=== PATIENT | female | born 1940 | race Caucasian/White ===

== ENCOUNTER 2017-11-10 14:41 | Inpatient (IN) | payer OTHER, BC ==
[2017-11-10] MEDS ORDERED: SODIUM CHLORIDE 1,000 ML IV STA (14:57)
[2017-11-10] MEDS ORDERED: ACETAMINOPHEN 325 MG TABLET (FP) PO ONE (15:00)
--- NOTE | 2017-11-10 15:00 | PDOC ---
Rapid Medical Evaluation Time Seen by Provider: 11/10/17 14:55 Medical Evaluation: Allergies Allergy/AdvReac Type Severity Reaction Status Date / Time No Known Allergies Allergy Verified 11/10/17 14:55 I have performed a brief in-person evaluation of this patient. The patient presents with a chief complaint of: fever today of 103. Has had cold symptoms for the past few days - cough, runny nose, sore throat, body aches. Patient had a Whipple procedure in 2014 for pancreatic cancer. Patient was recently diagnosed with relapse of pancreatic cancer. Currently not on any chemo. PCP is Dr. Mendoza Oncologist is at [facility] Pertinent physical exam findings: patient appears tired I have ordered the following: septic work up, PO tylenol The patient will proceed to the ED for further evaluation. Discharge Disposition - Diagnosis Fever, Symptoms of upper respiratory infection (URI) - Referrals - Patient Instructions - Post Discharge Activity
--- NOTE | 2017-11-10 16:15 | PDOC ---
History of Present Illness - General History Source: Patient, Family Exam Limitations: No Limitations - History of Present Illness Initial Comments: 11/10/17 16:44 The patient is a 77 year old female, with a significant past medical history of CAD, ASHD, NSTEMI, pancreatic cancer(s/p Whipple procedure), C. diff, anemia, hypertension, and hyperlipidemia, who presents to the emergency department with fever since earlier today. The patient reports she was in her usual state of health yesterday, but had a mild dry cough. Today however, patient endorses a TMax of 103 F. She reports associated sore throat, but no chills, headache, or dizziness. She reports intermittent loose stools for the past couple of months, but denies any current changes in stool, abdominal pain, nausea, or vomiting. She reports a history of UTIs in the past, but denies any current dysuria, hematuria, frequency, or urgency. Patient has recently been seeing her oncologist Dr. Hamilton, for recurrence of Pancreatic cancer, and is scheduled to undergo Chemotherapy later this month. Patient reports contacting her Oncologist Office at [facility], and the nurse advised she come to the ED for further evaluation. Patient denies any recent travel or sick contacts. Allergies: NKDA Past Surgical History: CABG, Whipple, Left knee replacement Social History: Non smoker. No ETOH or recreational drug use. Oncologist: Dr. Hamilton ([phone]) <Yong Bates - Last Filed: 11/10/17 18:12> - General History Source: Patient, Family Exam Limitations: No Limitations <Arron Mirza - Last Filed: 11/10/17 18:17> - General Chief Complaint: SIRS, Suspected/Possible Stated Complaint: FEVER Time Seen by Provider: 11/10/17 14:55 Past History <Yong Bates - Last Filed: 11/10/17 18:12> - Past Medical History Anemia: Yes Asthma: No Cancer: Yes (pancreatic) Cardiac Disorders: Yes (AF, CABG 1999) CVA: No COPD: No CHF: No Dementia: No Diabetes: No GI Disorders: Yes (GERD) Disorders: No HTN: Yes Hypercholesterolemia: Yes Liver Disease: No Seizures: No Thyroid Disease: No Other medical history: bone marrow biopsy - Surgical History Abdominal Surgery: No Appendectomy: No Cardiac Surgery: Yes (CABG) Cholecystectomy: No GI Surgery: Yes (whipple) Lung Surgery: No Neurologic Surgery: No Orthopedic Surgery: Yes (left knee replacement Jan) - Immunization History Immunization Up to Date: Yes - Suicide/Smoking/Psychosocial Hx Smoking Status: No Smoking History: Never smoked Have you smoked in the past 12 months: No Number of Cigarettes Smoked Daily: 0 Information on smoking cessation initiated: No Hx Alcohol Use: No Drug/Substance Use Hx: No Substance Use Type: None Hx Substance Use Treatment: No <Arron Mirza - Last Filed: 11/10/17 18:17> - Past Medical History Allergies/Adverse Reactions: Allergies Allergy/AdvReac Type Severity Reaction Status Date / Time No Known Allergies Allergy Verified 11/10/17 14:55 Home Medications: Ambulatory Orders Atorvastatin Ca [Lipitor] 40 mg PO HS #0 tablet 02/14/13 Multivitamins [Multivit ([facility] Formulary)] 1 tab PO DAILY 09/05/14 Lipase/Protease/Amylase [Zenpep Dr 20,000 Unit Capsule] 1 cap PO TID 10/05/14 Aclidinium [place] [Tudorza -] 1 inh PO BID #1 aero.powd 10/20/14 Aspirin [ASA -] 81 mg PO DAILY tab.chew 10/20/14 Lactobacillus Acidophilus [Bacid -] 1 each PO DAILY tab 10/20/14 Acetaminophen [Tylenol .Regular Strength -] 650 mg PO Q4H PRN #0 tablet Aspirin Coated [Ecotrin -] 81 mg PO DAILY tablet.ec 06/18/16 Atorvastatin Ca [Lipitor] 40 mg PO HS tablet 06/18/16 Enoxaparin [Lovenox -] 40 mg SQ DAILY disp.syrin 06/18/16 Furosemide [Lasix -] 40 mg PO DAILY tablet 06/18/16 Hydrocortisone 2.5% Topical Cr [Anusol-Hc -] 1 applic TP Q4H PRN #0 tube Hydrocortisone Acetate [Anusol Hc Suppository -] 25 mg RC HS supp.rect Lactobacillus Acidophilus [Bacid -] 1 tab PO BID tab 06/18/16 Metoclopramide HCl [Reglan -] 10 mg PO TIDAC tablet 01/07/17 Metoprolol Tartrate [Lopressor -] 25 mg PO BID tablet 06/18/16 Ranitidine [Zantac -] 150 mg PO DAILY tablet 06/18/16 Review of Systems - Review of Systems Able to Perform ROS?: Yes Comments:: 11/10/17 16:44 GENERAL/CONSTITUTIONAL: +Fever. No chills. No weakness. HEAD, EYES, EARS, NOSE AND THROAT: +Sore throat. No change in vision. No ear pain or discharge. CARDIOVASCULAR: No chest pain or shortness of breath. RESPIRATORY: +Dry cough. No wheezing or hemoptysis. GASTROINTESTINAL: +Chronic loose stools. No nausea, vomiting, or constipation. GENITOURINARY: No dysuria, frequency, or change in urination. MUSCULOSKELETAL: No joint or muscle swelling or pain. No neck or back pain. SKIN: No rash NEUROLOGIC: No headache, vertigo, loss of consciousness, or change in strength/ sensation. ENDOCRINE: No increased thirst. No abnormal weight change. HEMATOLOGIC/LYMPHATIC: No anemia, easy bleeding, or history of blood clots. ALLERGIC/IMMUNOLOGIC: No hives or skin allergy. <Yong Bates - Last Filed: 11/10/17 18:12> *Physical Exam - Vital Signs Last Vital Signs Temp Pulse Resp BP Pulse Ox 100.1 F H 99 H 18 90/58 100 11/10/17 14:56 11/10/17 14:56 11/10/17 14:56 11/10/17 14:56 11/10/17 14:56 - Physical Exam Comments: 11/10/17 16:45 GENERAL: Awake, alert, and fully oriented, in no acute distress HEAD: No signs of trauma EYES: PERRLA, EOMI, sclera anicteric, conjunctiva clear ENT: Auricles normal inspection, hearing grossly normal, nares patent, oropharynx clear without exudates. Moist mucosa NECK: Normal ROM, supple, no lymphadenopathy, JVD, or masses LUNGS: Breath sounds equal, clear to auscultation bilaterally. No wheezes, and no crackles HEART: Regular rate and rhythm, normal S1 and S2, no murmurs, rubs or gallops ABDOMEN: Soft, nontender, normoactive bowel sounds. No guarding, no rebound. No masses EXTREMITIES: Normal range of motion, no edema. No clubbing or cyanosis. No cords, erythema, or tenderness NEUROLOGICAL: Cranial nerves II through XII grossly intact. Normal speech, normal gait SKIN: Warm, Dry, normal turgor, no rashes or lesions noted. <Yong Bates - Last Filed: 11/10/17 18:12> - Vital Signs Last Vital Signs Temp Pulse Resp BP Pulse Ox 100.1 F H 99 H 18 90/58 100 11/10/17 14:56 11/10/17 14:56 11/10/17 14:56 11/10/17 14:56 11/10/17 14:56 <Arron Mirza - Last Filed: 11/10/17 18:17> Heart Score/ECG Review #1 ECG reviewed & interpreted by me at: 17:25 11/10/17 17:49 NSR left axis deviation, LBBB, QTC 528 msec, scarbossa negative. <Arron Mirza - Last Filed: 11/10/17 18:17> ED Treatment Course - LABORATORY CBC & Chemistry Diagram: 11/10/17 15:31 11/10/17 15:31 - ADDITIONAL ORDERS Additional order review: Laboratory Results 11/10/17 15:50 VBG pH 7.43 H POC VBG pCO2 41.2 POC VBG pO2 28.5 Mixed VBG HCO3 26.6 H 11/10/17 15:31 RBC 3.62 MCV 91.8 MCHC 32.5 RDW 18.1 H MPV 10.5 D Neutrophils % 75.4 Lymphocytes % 12.1 D Monocytes % 12.1 H Eosinophils % 0.1 D Basophils % 0.3 <Yong Bates - Last Filed: 11/10/17 18:12> - LABORATORY CBC & Chemistry Diagram: 11/10/17 15:31 11/10/17 15:31 <Arron Mirza - Last Filed: 11/10/17 18:17> Medical Decision Making - Medical Decision Making 11/10/17 17:56 First call placed to on-call oncologist at [facility] at 17:00. Awaiting call back. Case discussed with Dr. Maldonado at 17:30. First call placed to Dr. Yanez at 17:50. Awaiting call back. Case discussed with Dr. Yanez's covering doctor at 18:16. First call placed to Dr. Watkins at 17:56. Awaiting call back. First call placed to Dr. Bentley at 17:58. Awaiting call back. Case discussed with Dr. Butler at 18:05. <Yong Bates - Last Filed: 11/10/17 18:12> - Medical Decision Making 11/10/17 16:15 A portion of this note was documented by scribe services under my direction. I have reviewed the details of the note, within reason, and agree with the documentation with the following case summary and management plan written by me. Patient treated in the ED. Nursing notes are reviewed and incorporated into the medical decision-making. Vital signs reviewed. Peripheral IV access obtained by the nurse, laboratory studies are drawn and sent, reviewed and interpreted by myself. Vital Signs Period Temp Pulse Resp BP Sys/[place] Pulse Ox Last 24 Hr 100.1 F 99 18 90/58 100 77-year-old female patient with history of atrial fibrillation, coronary disease , C. difficile, hypertension, hyperlipidemia, pancreatic cancer status post Whipple's procedure, now with recurrence of [place] cancer, undergoing soon later this month with chemotherapy presents with fever for one day. The patient was in her usual state of health yesterday. She did endorse some mild nonproductive cough but today noted a fever 103. Patient reports some mild sore throat. The patient reports intermittent loose stool that is chronic for last several months. She denies any changes in her stooling and denies any abdominal pain at this time. Does have a history of urinary tract infections but denies dysuria. Patient contacted her oncologist office at [facility] and the nurse had advised patient to go to the ER. Sepsis workup initiated. Differential includes pneumonia, urinary tract infection, other occult infections. We'll obtain labs, chest x-ray, influenza swab, urine and reassess. We'll need to touch base with the patient's oncologist once results return. 11/10/17 17:45 CBC, BMP 11/10/17 15:31 11/10/17 15:31 CMP Sodium 138 mmol/L (136-145) 11/10/17 15:31 Potassium 3.6 mmol/L (3.5-5.1) 11/10/17 15:31 Chloride 101 mmol/L (98-107) 11/10/17 15:31 Carbon Dioxide 25 mmol/L (21-32) 11/10/17 15:31 Anion Gap 12 (8-16) 11/10/17 15:31 BUN 18 mg/dL (7-18) 11/10/17 15:31 Creatinine 1.3 mg/dL (0.55-1.02) H 11/10/17 15:31 Creat Clearance w eGFR 39.51 (>60) 11/10/17 15:31 Random Glucose 185 mg/dL (74-106) H 11/10/17 15:31 Lactic Acid 3.3 mmol/L (0.0-2.0) H* 11/10/17 15:31 Calcium 8.7 mg/dL (8.5-10.1) 11/10/17 15:31 Total Bilirubin 0.7 mg/dL (0.2-1.0) 11/10/17 15:31 AST 67 U/L (15-37) H 11/10/17 15:31 ALT 66 U/L (12-78) 11/10/17 15:31 Alkaline Phosphatase 156 U/L (45-117) H 11/10/17 15:31 Troponin I 0.28 ng/ml (0.00-0.05) H 11/10/17 15:31 Total Protein 6.7 g/dl (6.4-8.2) 11/10/17 15:31 Albumin 3.1 g/dl (3.4-5.0) L 11/10/17 15:31 Chest xray reviewed. Cardiomegaly but no infiltrates. Influenza swab pending. Case was discussed with [place] [facility] Fellow Dr. Maldonado (covering). Pt is not under chemotherapy at the moment and had an echo performed approx 1 year ago which showed an EF ~ 20%. Troponin was noted to be 0.28. The patient's history seems atypical for ACS or CT, but will give aspirin. However, will hold off on heparin and will trend troponin. We will hold off on antibiotics given WBC of 3.9. Patient is very nervous about getting reoccurrent c. diff. Given that WBC 3.9 and overall the patient is nontoxic appearing, I feel that this could potentially be a viral strain with cardiac demand. Will allow the cultures to grow and wait. Will call pt's [place] dipper machine operator Dr. Magda Yanez. Will admit patient. 11/10/17 18:[address] Butler. Case discussed with covering dipper machine operator for Dr. Yanez as well. Case discussed with Dr. Hays. He accepts patient to tele admission. Requests ID consultation as well. <Arron Mirza - Last Filed: 11/10/17 18:17> *DC/Admit/Observation/Transfer - Attestations Scribe Attestion: 11/10/17 16:45 Documentation prepared by Yong Bates, acting as biomedical repair technician for Arron Mirza MD. <Yong Bates - Last Filed: 11/10/17 18:12> - Discharge Dispostion Decision to Admit order: Yes <Arron Mirza - Last Filed: 11/10/17 18:17> Diagnosis at time of Disposition: Symptoms of upper respiratory infection (URI), Elevated troponin Fever Qualifiers: Fever type: unspecified Qualified Code(s): R50.9 - Fever, unspecified - Discharge Dispostion Condition at time of disposition: Stable
[2017-11-10 16:29] LABS: BASO % 0.3 % (0-2.0); EOS % 0.1 % (0-4.5); HEMATOCRIT 33.2 % (32.4-45.2); HEMOGLOBIN 10.8 GM/dL (10.7-15.3); LYMPH % 12.1 % (8-40); MCH 29.9 pg (25.7-33.7); MCHC 32.5 g/dl (32.0-36.0); MEAN CELL VOLUME 91.8 fl (80-96); MEAN PLT VOLUME 10.5 fl (7.5-11.1); MONO % 12.1 % (3.8-10.2); NEUT % 75.4 % (42.8-82.8); PLATELET COUNT 120 K/MM3 (134-434); RBC 3.62 M/mm3 (3.60-5.2); RDW 18.1 % (11.6-15.6); WHITE BLOOD COUNT 3.9 K/mm3 (4.0-10.0)
[2017-11-10 16:33] LABS: VENOUS PC02 41.2 mmHg (38-52); VENOUS PH 7.43 (7.32-7.42)
[2017-11-10 16:34] LABS: VENOUS PO2 28.5 mmHg (28-48)
[2017-11-10 16:45] LABS: INR 1.57 (0.82-1.09); PROTHROMBIN TIME (PATIENT) 17.7 SEC (9.7-13.0)
[2017-11-10 16:50] LABS: ALBUMIN 3.1 g/dl (3.4-5.0); ANION GAP 12 (8-16); BLOOD UREA NITROGEN 18 mg/dL (7-18); CALCIUM 8.7 mg/dL (8.5-10.1); CHLORIDE 101 mmol/L (98-107); CO2 25 mmol/L (21-32); CREATININE 1.3 mg/dL (0.55-1.02); GLUCOSE,RANDOM 185 mg/dL (74-106); POTASSIUM 3.6 mmol/L (3.5-5.1); SGOT/AST 67 U/L (15-37); SGPT/ALT 66 U/L (12-78); SODIUM 138 mmol/L (136-145)
[2017-11-10 16:51] LABS: ALK PHOS 156 U/L (45-117); BILIRUBIN,TOTAL 0.7 mg/dL (0.2-1.0); TOT PROT 6.7 g/dl (6.4-8.2)
[2017-11-10] MEDS ORDERED: ASPIRIN 81 MG CHEWABLE TABLETS PO ONE (17:34)
[2017-11-10] MEDS ORDERED: ASPIRIN COATED 81 MG TABLET.EC ONE (17:38)
--- NOTE | 2017-11-10 18:22 | HP ---
Admitting History and Physical - Primary Care Physician PCP: Jaycob Mendoza - Admission Chief Complaint: Fever with Cough History of Present Illness: 77 yrs old pleaseant F multiple medical Co-morbidities inculding recurrent [facility]reatic [facility] HTN, CAd s/p CABG, Dyslipedemia, Afib on Coumadin, yesterday present with 3 days H/O URTI symptoms , yesterday morning symptoms worsened so came to Ed For evaluation, patient spiked 103 at home also c/o scrathy sensation in throat, nasal congestion and cough with mucoid sputum, Ed Consulted her Metal Engineering Process Worker at [facility] and Oncologist at [place] agrees with plan of care, no c/o nausea, vomiting, diarrhea, chest pain, dysuria, Flu swab -ve, lab shows elevated Lactic acid and troponin I ad mitted for further management. - Past Medical History Cardiovascular: Yes: CAD, CHF, HTN, Hyperlipdemia, Mitral Insufficiency, Pulmonary Hypertension, Other (Cardiomyopathy) Pulmonary: Yes: Bronchitis (h/o possible chemotherpay reaction) Gastrointestinal: Yes: Constipation, Other (Whipple procedure for pancreatic cancer Recent C Diff diarrhea on metronidazole) Heme/Onc: Yes: Other (Previous chemotherapyinduced cytopenias) Musculoskeletal: Yes: Osteoarthritis - Past Surgical History Past Surgical History: Yes: CABG, Joint Replacement (TKR) - Smoking History Smoking history: Never smoked Have you smoked in the past 12 months: No Aproximately how many cigarettes per day: 0 - Alcohol/Substance Use Hx Alcohol Use: No History of Substance Use: reports: None - Social History ADL: Independent History of Recent Travel: No Home Medications - Allergies Allergies/Adverse Reactions: Allergies Allergy/AdvReac Type Severity Reaction Status Date / Time No Known Allergies Allergy Verified 11/10/17 14:55 - Home Medications Home Medications: Ambulatory Orders Acetaminophen [Tylenol -] 500 mg PO DAILY 11/10/17 Atorvastatin Ca [Lipitor] 10 mg PO HS 11/10/17 Cholecalciferol (Vitamin D3) [Vitamin D3] 2,000 unit PO DAILY 11/10/17 Enalapril Maleate 2.5 mg PO DAILY 11/10/17 Famotidine [Pepcid] 20 mg PO PRN PRN 11/10/17 Lipase/Protease/Amylase [Creon Dr 24,000 Units Capsule] 1 each PO DAILY Metoprolol Succinate [Toprol Xl] 100 mg PO DAILY 11/10/17 Multivitamin [One Daily] 1 each PO DAILY 11/10/17 Torsemide 50 mg PO DAILY 11/10/17 Warfarin Na [Coumadin Protocol] 1.5 each PO DAILY 11/10/17 Warfarin Na [Coumadin] 1 mg PO DAILY 11/10/17 traMADol HCL [Ultram -] 50 mg PO DAILY 11/10/17 Family Disease History - Family Disease History Family History: Unremarkable Review of Systems - Review of Systems Constitutional: reports: Chills, Diaphoresis, Fever, Lethargy, Loss of Appetite HENT: reports: Throat Pain. denies: Difficult Swallowing, Ear Discharge, Ear Pain, Epistaxis Neck: denies: Decreased ROM, Lumps, Pain on Movement, Stiffness Cardiovascular: reports: Shortness of Breath. denies: Chest Pain, Edema, Palpitations Respiratory: reports: Cough. denies: Hemoptysis, Orthopnea Gastrointestinal: denies: Abdominal Pain, Bloating, Constipation, Diarrhea, Melena, Vomiting Genitourinary: denies: Burning, Discharge, Dysuria Musculoskeletal: reports: Back Pain. denies: Crepitus, Decreased ROM Neurological: denies: Change in LOC, Change in Speech, Confusion Endocrine: denies: Excessive Sweating, Flushing, Increased Hunger Hematology/Lymphatic: denies: Easily Bruised, Excessive Bleeding Physical Examination Vital Signs: Vital Signs Temperature 100.1 F H 11/10/17 14:56 Pulse Rate 99 H 11/10/17 14:56 Respiratory Rate 18 11/10/17 14:56 Blood Pressure 90/58 11/10/17 14:56 O2 Sat by Pulse Oximetry (%) 100 11/10/17 14:56 Elderly F not in distress HEENT; Mm moist nasal congestion NECK: No JVd No Bruit CHEST: CTA B/L CVS: S1S2 R no m/g/r ABD: No distention, non tender Bs + EXT: No edema feet no calf tenderness, Pulses + TEAM FOREMAN: AOX3 non focal Labs: CBC, BMP 11/10/17 15:31 11/10/17 15:31 Imaging - Results Chest X-ray: Report Reviewed (No infiltrates) EKG: Report Reviewed (No Intervakl changes) Problem List - Problems (1) Fever Assessment/Plan: Most likely viral; sickness, close observation, F/U Pending culture, no source so far F/U Serial CBC, patient doesn't want abx as she has H/O C Diff, F/U ID Recommondation, Flu swanb is -ve. Code(s): R50.9 - FEVER, UNSPECIFIED Qualifiers: Fever type: unspecified Qualified Code(s): R50.9 - Fever, unspecified (2) Symptoms of upper respiratory infection (URI) Assessment/Plan: Cont Symptomatic treatment fever curve, cough syrup Code(s): R09.89 - OTH SYMPTOMS AND SIGNS INVOLVING THE CIRC AND RESP SYSTEMS (3) Elevated troponin Assessment/Plan: Asymptomatic no acute St t chnages can be Demand ischemmia, Cardiology consult, serial CE and ECHO cont Home meds. Code(s): R79.89 - OTHER SPECIFIED ABNORMAL FINDINGS OF BLOOD CHEMISTRY (4) LOREE (acute kidney injury) Assessment/Plan: Mild Elvation of BUN/Creat F/U after IV Hydration. Code(s): N17.9 - ACUTE KIDNEY FAILURE, UNSPECIFIED (5) Dehydration Code(s): E86.0 - DEHYDRATION (6) ASHD (arteriosclerotic heart disease) Assessment/Plan: Cont Home meds Code(s): I25.10 - ATHSCL HEART DISEASE OF [place] CORONARY ARTERY W/O ANG PCTRS (7) Pancreatic cancer Assessment/Plan: Recurrent F/U at [place] no active issue Code(s): C25.9 - MALIGNANT NEOPLASM OF PANCREAS, UNSPECIFIED (8) GERD (gastroesophageal reflux disease) Assessment/Plan: Cont Famotidine Code(s): K21.9 - GASTRO-ESOPHAGEAL REFLUX DISEASE WITHOUT ESOPHAGITIS (9) HTN (hypertension) Assessment/Plan: BP lower side IV Hydration Hold BP meds re evaluate in am. Code(s): I10 - ESSENTIAL (PRIMARY) HYPERTENSION (10) Afib Assessment/Plan: On AC Coumadin level sub therapeutic. Code(s): I48.91 - UNSPECIFIED ATRIAL FIBRILLATION Qualifiers: Atrial fibrillation type: paroxysmal Qualified Code(s): I48.0 - Paroxysmal atrial fibrillation (11) CHF (congestive heart failure), NYHA class II Assessment/Plan: Unknown EF Hold Toresamide for Dehydration and Hypotention F.?U ECHO, re introduce Diuretics as per volume status. Code(s): I50.9 - HEART FAILURE, UNSPECIFIED (12) Thrombocytopenia Assessment/Plan: Patient has H/O Thrombocytopenia, base line platelete count around 80 K Code(s): D69.6 - THROMBOCYTOPENIA, UNSPECIFIED
[2017-11-10] MEDS ORDERED: ATORVASTATIN CA 40 MG TABLET (FP) PO SCH (22:00)
[2017-11-10] MEDS ORDERED: PHENYLEPHRINE 0.25%/STARCH 1 EACH SUPP.RECT RC ONE (23:25)
[2017-11-10] MEDS ORDERED: METOPROLOL TARTRATE 25 MG TABLET (FP) ONE (23:25)
[2017-11-10] MEDS ORDERED: ATORVASTATIN CA 40 MG TABLET (FP) ONE (23:26)
[2017-11-10 23:34] LABS: URINE APPEARANCE CLOUDY; URINE BILIRUBIN NEGATIVE (<2.0 mg/dL); URINE BLOOD 2+ (NEGATIVE); URINE COLOR YELLOW; URINE GLUCOSE (UA) NEGATIVE (NEGATIVE); URINE KETONE NEGATIVE (NEGATIVE); URINE NITRITE NEGATIVE (NEGATIVE); URINE PROTEIN NEGATIVE (NEGATIVE); URINE UROBILINOGEN NEGATIVE mg/dL (0.2-1.0)
[2017-11-10 23:41] LABS: URINE LEUK ESTERASE 3+ (NEGATIVE)
[2017-11-10 23:44] LABS: EPI CELLS RARE /HPF (FEW); URINE BACTERIA RARE /hpf (NONE SEEN); URINE HYALINE CAST 12 /lpf; URINE MUCUS RARE
[2017-11-10] MEDS: LACTOBACILLUS ACIDOPHILUS 1 TABLET PO SCH (23:47)
[2017-11-10] MEDS: HYDROCORTISONE ACETATE 25 MG/SUPP.RECT RC SCH (23:47)
[2017-11-11] MEDS ORDERED: PHENYLEPHRINE 0.25%/STARCH 1 EACH SUPP.RECT RC ONE (01:16)
[2017-11-11] MEDS: METOPROLOL TARTRATE 25 MG TABLET (FP) PO SCH ×3 (01:25→22:25)
[2017-11-11] MEDS ORDERED: WARFARIN NA 5 MG TABLET (UD) PO ONE (01:26)
[2017-11-11] MEDS ORDERED: SODIUM CHLORIDE 0.9% 500 ML INFUS.BAG IV ONE (01:27)
[2017-11-11] MEDS: SODIUM CHLORIDE 0.9% 500 ML INFUS.BAG IV SCH (01:30)
[2017-11-11] MEDS ORDERED: WARFARIN NA 1 MG TABLET (FP) ONE (01:39)
[2017-11-11] MEDS: METOCLOPRAMIDE HCL 10 MG TABLET (FP) PO SCH ×3 (06:58→17:32)
[2017-11-11 08:03] VITALS: BMI 23.4
[2017-11-11 08:47] LABS: BASO % 0.4 % (0-2.0); EOS % 1.3 % (0-4.5); HEMATOCRIT 31.4 % (32.4-45.2); HEMOGLOBIN 10.3 GM/dL (10.7-15.3); LYMPH % 27.8 % (8-40); MCH 30.3 pg (25.7-33.7); MEAN CELL VOLUME 91.8 fl (80-96); MEAN PLT VOLUME 9.7 fl (7.5-11.1); MONO % 11.7 % (3.8-10.2); NEUT % 58.8 % (42.8-82.8); PLATELET COUNT 94 K/MM3 (134-434); RBC 3.41 M/mm3 (3.60-5.2); RDW 18.3 % (11.6-15.6); WHITE BLOOD COUNT 4.1 K/mm3 (4.0-10.0)
[2017-11-11 09:19] LABS: ANION GAP 8 (8-16); BLOOD UREA NITROGEN 17 mg/dL (7-18); CALCIUM 8.5 mg/dL (8.5-10.1); CHLORIDE 104 mmol/L (98-107); CO2 27 mmol/L (21-32); CREATININE 0.9 mg/dL (0.55-1.02); GLUCOSE,RANDOM 102 mg/dL (74-106); POTASSIUM 3.8 mmol/L (3.5-5.1); SGOT/AST 85 U/L (15-37); SGPT/ALT 67 U/L (12-78); SODIUM 139 mmol/L (136-145)
[2017-11-11 09:21] LABS: ALK PHOS 146 U/L (45-117); BILIRUBIN,TOTAL 0.7 mg/dL (0.2-1.0); TOT PROT 6.3 g/dl (6.4-8.2)
[2017-11-11] MEDS: MULTIVITAMINS (DAILY MVI) TABLET (FP) PO SCH (09:23)
--- NOTE | 2017-11-11 09:33 | PN ---
Progress Note, Physician Chief Complaint: T max 100.1 feels improved - Current Medication List Current Medications: Active Medications Acetaminophen (Tylenol -) 650 mg PO Q4H PRN PRN Reason: FEVER Aspirin (Ecotrin -) 81 mg PO DAILY [facility] Atorvastatin Calcium (Lipitor -) 40 mg PO HS [facility] Last Admin: 11/10/17 23:48 Dose: 40 mg Hydrocortisone Acetate (Anusol Hc Suppository -) 25 mg RC HS [facility] Last Admin: 11/10/17 23:47 Dose: 25 mg Lactobacillus Acidophilus (Bacid -) 1 tab PO BID [facility] Last Admin: 11/10/17 23:47 Dose: 1 tab Metoclopramide HCl (Reglan -) 10 mg PO TIDAC [facility] Last Admin: 11/11/17 06:58 Dose: Not Given Metoprolol Tartrate (Lopressor -) 25 mg PO BID [facility] Last Admin: 11/11/17 09:23 Dose: 25 mg Multivitamins/Minerals/Vitamin C (Tab-A-Vit -) 1 tab PO DAILY [facility] Last Admin: 11/11/17 09:23 Dose: 1 tab Non-Formulary Medication (Aclidinium [place] [Tudorza -]) 1 inh PO BID [facility] Non-Formulary Medication (Lipase/Protease/Amylase [Zenpep Dr 20,000 Unit Capsule ]) 1 cap PO TID [facility] Ranitidine HCl (Zantac -) 150 mg PO DAILY [facility] Last Admin: 11/11/17 09:25 Dose: Not Given Sodium Chloride (Normal Saline -) 75 ml IV NOW [facility] Last Admin: 11/11/17 01:30 Dose: 75 ml - Objective Vital Signs: Vital Signs Temperature 98.8 F 11/11/17 04:45 Pulse Rate 77 11/11/17 04:45 Respiratory Rate 17 11/11/17 04:45 Blood Pressure 107/65 11/11/17 04:45 O2 Sat by Pulse Oximetry (%) 97 11/11/17 04:30 Elderly F not in distress HEENT; Mm moist nasal congestion NECK: No JVd No Bruit CHEST: CTA B/L CVS: S1S2 R no m/g/r ABD: No distention, non tender Bs + EXT: No edema feet no calf tenderness, Pulses + [employer]IEUT[employer]NT: AOX3 non focal Labs: CBC, BMP 11/11/17 08:30 11/11/17 08:30 INR, PTT INR 1.57 (0.82-1.09) H 11/10/17 15:31 Problem List - Problems (1) Fever Assessment/Plan: Most likely viral; sickness, close observation, F/U Pending culture, no source so far F/U Serial CBC, patient doesn't want abx as she has H/O C Diff, F/U ID Recommondation, Flu swanb is -ve. Code(s): R50.9 - FEVER, UNSPECIFIED Qualifiers: Fever type: unspecified Qualified Code(s): R50.9 - Fever, unspecified (2) Symptoms of upper respiratory infection (URI) Assessment/Plan: Cont Symptomatic treatment fever curve, cough syrup Code(s): R09.89 - OTH SYMPTOMS AND SIGNS INVOLVING THE CIRC AND RESP SYSTEMS (3) Elevated troponin Assessment/Plan: Asymptomatic no acute St t chnages can be Demand ischemmia, Cardiology consult, serial CE and ECHO cont Home meds. Code(s): R79.89 - OTHER SPECIFIED ABNORMAL FINDINGS OF BLOOD CHEMISTRY (4) LOREE (acute kidney injury) Assessment/Plan: Mild Elvation of BUN/Creat improved after IV Hydration. Code(s): N17.9 - ACUTE KIDNEY FAILURE, UNSPECIFIED (5) Dehydration Assessment/Plan: Resolved Code(s): E86.0 - DEHYDRATION (6) ASHD (arteriosclerotic heart disease) Assessment/Plan: Cont Home meds Code(s): I25.10 - ATHSCL HEART DISEASE OF [place] CORONARY ARTERY W/O ANG PCTRS (7) Pancreatic cancer Assessment/Plan: Recurrent F/U at [place] no active issue Code(s): C25.9 - MALIGNANT NEOPLASM OF PANCREAS, UNSPECIFIED (8) GERD (gastroesophageal reflux disease) Assessment/Plan: Cont Famotidine Code(s): K21.9 - GASTRO-ESOPHAGEAL REFLUX DISEASE WITHOUT ESOPHAGITIS (9) HTN (hypertension) Assessment/Plan: BP lower side IV Hydration Hold BP meds re evaluate in am. Code(s): I10 - ESSENTIAL (PRIMARY) HYPERTENSION (10) Afib Assessment/Plan: On AC Coumadin level sub therapeutic. Code(s): I48.91 - UNSPECIFIED ATRIAL FIBRILLATION Qualifiers: Atrial fibrillation type: paroxysmal Qualified Code(s): I48.0 - Paroxysmal atrial fibrillation (11) Thrombocytopenia Assessment/Plan: Drop in platelete F/U serial platelete count , Hematology consult Code(s): D69.6 - THROMBOCYTOPENIA, UNSPECIFIED (12) CHF (congestive heart failure), NYHA class II Assessment/Plan: Unknown EF Hold Toresamide for Dehydration and Hypotention F.?U ECHO, re introduce Diuretics as per volume status. Code(s): I50.9 - HEART FAILURE, UNSPECIFIED
[2017-11-11] MEDS ORDERED: PATIENT'S OWN MEDICATION (NON-FORMULARY) (Famotidine [Pepcid] 20 MG) PO PRN (09:38)
[2017-11-11] MEDS ORDERED: ENALAPRIL MALEATE 2.5 MG TABLET (FP) PO SCH ×2 (10:00→22:00)
[2017-11-11] MEDS ORDERED: RANITIDINE HCL 150 MG TABLET (FP) PO SCH (10:00)
[2017-11-11 10:19] LABS: INR 1.78 (0.82-1.09); PROTHROMBIN TIME (PATIENT) 20.1 SEC (9.7-13.0)
[2017-11-11] MEDS ORDERED: ONDANSETRON 4 MG/2 ML VIAL IVPUSH PRN (10:20)
--- NOTE | 2017-11-11 10:52 | PN ---
Progress Note (short form) - Note Progress Note: ID Consult dictated Probable viral URI Hx C difficile colitis Recurrent pancreatic ca Observe off antibiotics
--- NOTE | 2017-11-11 11:20 | CONSULT ---
Consult Consult Specialty:: Cardiology Referred by:: Medicine Reason for Consultation:: (+) Troponin - History of Present Illness Chief Complaint: Fever History of Present Illness: 77 yo female Metastatic Pancreatic cancer known CAD s/p 1v CAB in 1999 for isolated LAD disease Severe MR with severe LV dysfunction on echo in 05/2016 Afib on AC (Warfarin) Followed closely by Dr. Jarrell at [facility] for Cards Now admitted after 1 days of fever and cough Found to have elevated lactate, BNP and troponin. Currently denies any CV complaints of chest pain, dyspnea, palpitations or dizziness. - History Source History Provided By: Patient, Family Member Limitations to Obtaining History: No Limitations - Past Medical History Cardio/Vascular: Yes: CAD, CHF, HTN, Hyperlipdemia, Mitral Insufficiency, Pulmonary Hypertension, Other (Cardiomyopathy) Pulmonary: Yes: Bronchitis (h/o possible chemotherpay reaction) Gastrointestinal: Yes: Constipation, Other (Whipple procedure for pancreatic cancer Recent C Diff diarrhea on metronidazole) ...: No Musculoskeletal: Yes: Osteoarthritis - Past Surgical History Past Surgical History: Yes: CABG, Joint Replacement (TKR) - Alcohol/Substance Use Hx Alcohol Use: No History of Substance Use: reports: None - Smoking History Smoking history: Never smoked Have you smoked in the past 12 months: No Aproximately how many cigarettes per day: 0 - Social History Usual Living Arrangement: With Spouse ADL: Independent History of Recent Travel: No Home Medications - Allergies Allergies/Adverse Reactions: Allergies Allergy/AdvReac Type Severity Reaction Status Date / Time No Known Allergies Allergy Verified 11/10/17 14:55 - Home Medications Home Medications: Ambulatory Orders Acetaminophen [Tylenol -] 500 mg PO DAILY 11/10/17 Atorvastatin Ca [Lipitor] 10 mg PO HS 11/10/17 Cholecalciferol (Vitamin D3) [Vitamin D3] 2,000 unit PO DAILY 11/10/17 Enalapril Maleate 2.5 mg PO DAILY 11/10/17 Famotidine [Pepcid] 20 mg PO PRN PRN 11/10/17 Lipase/Protease/Amylase [Dezon Dr 24,000 Units Capsule] 1 each PO DAILY Metoprolol Succinate [Toprol Xl] 100 mg PO DAILY 11/10/17 Multivitamin [One Daily] 1 each PO DAILY 11/10/17 Torsemide 50 mg PO DAILY 11/10/17 Warfarin Na [Coumadin Protocol] 1.5 each PO DAILY 11/10/17 Warfarin Na [Coumadin] 1 mg PO DAILY 11/10/17 traMADol HCL [Ultram -] 50 mg PO DAILY 11/10/17 Family Disease History - Family Disease History Family History: Unremarkable Review of Systems - Review of Systems Constitutional: reports: Fever, Loss of Appetite, Weakness Eyes: reports: No Symptoms HENT: reports: No Symptoms Neck: reports: No Symptoms Cardiovascular: reports: No Symptoms Respiratory: reports: No Symptoms, Cough (Productive) Gastrointestinal: reports: No Symptoms Genitourinary: reports: No Symptoms Musculoskeletal: reports: No Symptoms Integumentary: reports: No Symptoms Neurological: reports: No Symptoms Physical Exam Vital Signs: Vital Signs Temperature 98.6 F 11/11/17 09:00 Pulse Rate 90 11/11/17 09:00 Respiratory Rate 20 11/11/17 09:00 Blood Pressure 111/64 11/11/17 09:00 O2 Sat by Pulse Oximetry (%) 97 11/11/17 09:00 Constitutional: Yes: No Distress (Sleepy but arrousbale) Eyes: Yes: WNL HENT: Yes: WNL Neck: Yes: WNL Cardiovascular: Yes: Regular Rate and Rhythm, Pulse Irregular, Murmur (Soft systolic murmur at apex) Respiratory: Yes: CTA Bilaterally Gastrointestinal: Yes: Normal Bowel Sounds Musculoskeletal: Yes: WNL Extremities: Yes: WNL Edema: No Labs: CBC, BMP 11/11/17 08:30 11/11/17 08:30 Imaging - Results X-ray: Image Reviewed (Cardiomegally) Other: Image Reviewed (ECG on 11/10/2017 at 17:24PM shows NSR with LAD and LBBB ECG on 11/11/2017 at 11:00AM shows NSR with LAD and LBBB) Assessment/Plan 77 yo female with metastatic pancreatic [id number] CAB, Afib on coumadin now admitted with febrile illness with elevated lactate and (+) troponin (+) troponin -Likely demand related from ongoing febrile illness -Doubty ACS here -Would contruinue to trend troponin -Contineu Asa, statin -Need to treat underlying febrile illness as per ID 2) CAD -s/p CAB -No chest pain ad ECG with LBBB (likely old) 3) AFib -Rate controlled Continue Coumadin, INR 1.78 (goal 2-3) -Would give additional dose tonight.
--- NOTE | 2017-11-11 11:36 | CONS ---
INFECTIOUS DISEASE CONSULTATION DATE OF CONSULTATION: DATE OF DICTATION: 11/11/2017 The patient is a 77-year-old female with a history of recurrent pancreatic cancer, history of C. difficile colitis in May 2016, now evaluated for respiratory tract infection. The patient reports developing upper respiratory tract symptoms over the past couple of days, consisting of rhinorrhea, postnasal drip, sinus congestion, dry cough, sore throat, generalized arthralgias and myalgias. She was evaluated in the emergency room where a rapid influenza swab was performed and was negative. Her course has been complicated by low-grade fever. Patient was noted to be leukopenic and thrombocytopenic. She was at home. She was unaware of any ill contacts. No recent travel. No recent hospitalizations. She did receive influenza vaccine last year. PAST MEDICAL HISTORY: Positive for pancreatic cancer with recurrence, coronary artery disease, history of [place], hypertension, hyperlipidemia, atrial fibrillation, C. difficile colitis in May 2016. PAST SURGICAL HISTORY: Status post Whipple procedure, coronary artery bypass graft, left total knee replacement. ALLERGIES: No known allergies. MEDICATIONS: Include Lipitor, aspirin, Lasix, Lopressor, Zantac. SOCIAL HISTORY: She resides at home. Nonsmoker, nondrinker. SYSTEMS REVIEW: Neurologic: No loss of consciousness, seizure activity, focal weakness. Cardiac: Negative chest pain or palpitations. Respiratory: As per HPI. Gastrointestinal: No vomiting or diarrhea. History of recurrent pancreatic cancer. Genitourinary: Negative for urinary tract infection. LABORATORY DATA: White count 4.1; neutrophils 58, lymphocytes 27, monocytes 11; hematocrit 31.4; platelets 94. Blood culture is pending. Influenza swab negative. Chest x-ray: Cardiomegaly. No acute disease. PHYSICAL EXAMINATION: General: She is awake and alert, supine in bed. Vital Signs: Temperature 98.6, T-max 100.1; blood pressure 111/64; pulse 94, regular; respirations 18 per minute. HEENT: Patient sounds congested with sinus congestion. Sclerae are anicteric. Oropharynx: Mild injection. No exudate. Neck: Supple. No palpable nodes. Heart: Sounds S1, S2. Lungs: Clear. Abdomen: Soft. No tenderness elicited. Extremities: Positive for edema. IMPRESSION: 1. Probable viral upper respiratory tract infection. 2. Leukopenia, monocytosis, thrombocytopenia, likely secondary to viral infection. 3. Recurrent pancreatic cancer. 4. History of Clostridium difficile colitis. Suspect viral upper respiratory tract infection. Patient is not acutely toxic appearing. We will await cultures and observe off antibiotic therapy, especially in light of moderately severe C. difficile colitis in the past. IV fluid hydration. Thank you for the kind referral. SANCHEZ PRATT M.D. [id number]
[2017-11-11] MEDS ORDERED: CREON 24000 UNIT PO PRN (11:40)
[2017-11-11] MEDS: ACETAMINOPHEN 325 MG TABLET (FP) PO PRN (13:34)
[2017-11-11] MEDS: traMADol HCL 50 MG TABLET PO SCH (13:35)
[2017-11-11] MEDS: LIPASE PO SCH ×2 (13:36→17:37)
[2017-11-11] MEDS: LACTOBACILLUS ACIDOPHILUS 1 TABLET PO SCH ×2 (13:36→22:24)
[2017-11-11] MEDS: PROTEASE PO SCH ×2 (13:36→17:37)
[2017-11-11] MEDS: AMYLASE PO SCH ×2 (13:36→17:37)
[2017-11-11] MEDS: FAMOTIDINE 20 MG/50 ML IVPB 20 MG/50 ML MG IVPB SCH ×2 (13:36→22:25)
[2017-11-11] MEDS: CHOLECALCIFEROL (VITAMIN D3) 1,000 UNIT TABLET (FP) PO SCH (13:36)
[2017-11-11] MEDS ORDERED: PT OWN MED DRAWER 7, Y5N ONE ×2 (13:47→17:42)
[2017-11-11] MEDS: ASPIRIN COATED 81 MG TABLET.EC PO SCH (13:50)
--- NOTE | 2017-11-11 13:50 | CONSULT ---
Consult Consult Specialty:: Oncology Referred by:: Medicine Reason for Consultation:: Thrombocytopenia - History of Present Illness Chief Complaint: Thrombocytopenia - platelets 94K today History of Present Illness: Patient with known metastatic pancreatic cancer, Whipples 2014, (margins NOT clear), initially on Gemzar (complicated by episodes(s) of FN) and in general not tolerated - ?reason, thereafter on Xeloda - discontinued - ?due to lack of response. Now off treatment, but considering RTX. All treatment at . Presented with fever, attributed to a viral RTI. Not neutropenic. As per patient, has been aware of thrombocytopenia for several years, (even preceding pancreatic cancer diagnosis). Reports she underwent a bone marrow biopsy circa [address] Park, and was told she has MDS. Has not received any specific treatment since. No platelet transfusions. No hemorrhagic manifestations. Underwent another bone marrow biopsy more recently with a builder beam at - because she 'hadn't had one in a while', and was told it was 'OK'. Patient otherwise doing well. - History Source History Provided By: Patient, Family Member Limitations to Obtaining History: No Limitations - Past Medical History Cardio/Vascular: Yes: CAD, CHF, HTN, Hyperlipdemia, Mitral Insufficiency, Pulmonary Hypertension, Other (Cardiomyopathy) Pulmonary: Yes: Bronchitis (h/o possible chemotherpay reaction) Gastrointestinal: Yes: Constipation, Other (Whipple procedure for pancreatic cancer Recent C Diff diarrhea on metronidazole) ...: No Musculoskeletal: Yes: Osteoarthritis - Past Surgical History Past Surgical History: Yes: CABG, Joint Replacement (TKR) - Alcohol/Substance Use Hx Alcohol Use: No History of Substance Use: reports: None - Smoking History Smoking history: Never smoked Have you smoked in the past 12 months: No Aproximately how many cigarettes per day: 0 - Social History Usual Living Arrangement: With Spouse ADL: Independent History of Recent Travel: No Home Medications - Allergies Allergies/Adverse Reactions: Allergies Allergy/AdvReac Type Severity Reaction Status Date / Time No Known Allergies Allergy Verified 11/10/17 14:55 - Home Medications Home Medications: Ambulatory Orders Acetaminophen [Tylenol -] 500 mg PO DAILY 11/10/17 Atorvastatin Ca [Lipitor] 10 mg PO HS 11/10/17 Cholecalciferol (Vitamin D3) [Vitamin D3] 2,000 unit PO DAILY 11/10/17 Enalapril Maleate 2.5 mg PO DAILY 11/10/17 Famotidine [Pepcid] 20 mg PO PRN PRN 11/10/17 Lipase/Protease/Amylase [Creon Dr 24,000 Units Capsule] 1 each PO DAILY Metoprolol Succinate [Toprol Xl] 100 mg PO DAILY 11/10/17 Multivitamin [One Daily] 1 each PO DAILY 11/10/17 Torsemide 50 mg PO DAILY 11/10/17 Warfarin Na [Coumadin Protocol] 1.5 each PO DAILY 11/10/17 Warfarin Na [Coumadin] 1 mg PO DAILY 11/10/17 traMADol HCL [Ultram -] 50 mg PO DAILY 11/10/17 Review of Systems - Review of Systems Constitutional: reports: Fever, Night Sweats. denies: Loss of Appetite, Unintentional Wgt. Loss Eyes: reports: No Symptoms HENT: reports: No Symptoms Neck: reports: No Symptoms Cardiovascular: denies: Chest Pain, Edema, Palpitations Respiratory: denies: Cough, Exercise Intolerance, SOB Gastrointestinal: reports: No Symptoms. denies: Abdominal Pain, Constipation, Diarrhea, Vomiting Genitourinary: reports: No Symptoms Musculoskeletal: denies: Back Pain, Extremity Pain, Joint Pain Integumentary: denies: Bruising, Rash Hematology/Lymphatic: denies: Easily Bruised, Excessive Bleeding Psychiatric: reports: No Symptoms Physical Exam Vital Signs: Vital Signs Temperature 98.6 F 11/11/17 09:00 Pulse Rate 90 11/11/17 09:00 Respiratory Rate 20 11/11/17 09:00 Blood Pressure 111/64 11/11/17 09:00 O2 Sat by Pulse Oximetry (%) 97 11/11/17 09:00 Constitutional: Yes: Well Nourished, No Distress, Calm Eyes: Yes: Conjunctiva Clear. No: Sclera Icterus HENT: Yes: Normocephalic Neck: Yes: Trachea Midline. No: Lymphadenopathy Cardiovascular: Yes: S1, S2. No: Pulse Irregular Respiratory: Yes: Regular, CTA Bilaterally Gastrointestinal: Yes: Normal Bowel Sounds, Soft. No: Hepatomegaly, Splenomegaly Musculoskeletal: No: Joint Swelling Edema: No Neurological: Yes: Alert, Oriented Psychiatric: Yes: Alert, Oriented Labs: CBC, BMP 11/11/17 08:30 11/11/17 08:30 Assessment/Plan Patient with metastatic pancreatic cancer, not on recent treatment - (awaiting RTX), presents with fever attributed to viral RTI, and found to have mild thrombocytopenia. Mild normocytic anemia, NOT neutropenic. Apparently history of MDS, as per patient's history, but no clear evidence thereof. Drop in platelet count since admission is a very non-specific finding - may well be attributable to her current infection, superimposed on an already compromised marrow (possible MDS, prior chemotherapy). Would not recommend any intervention/investigation at this time - other than observation. If platelet count does not return to historic baseline then can consider further workup. Will continue to follow.
[2017-11-11] MEDS: WARFARIN NA 1 MG TABLET (FP) PO SCH (17:37)
[2017-11-11] MEDS ORDERED: WARFARIN NA 1 MG TABLET (FP) PO SCH (18:00)
[2017-11-11] MEDS: ATORVASTATIN CA 10 MG TABLET (FP) PO SCH (22:24)
[2017-11-11] MEDS: HYDROCORTISONE ACETATE 25 MG/SUPP.RECT RC SCH (23:11)
[2017-11-12] MEDS: SODIUM CHLORIDE 0.9% 500 ML INFUS.BAG IV SCH (01:42)
[2017-11-12] MEDS: METOCLOPRAMIDE HCL 10 MG TABLET (FP) PO SCH ×3 (06:23→16:44)
[2017-11-12 07:09] LABS: BASO % 0.5 % (0-2.0); EOS % 3.6 % (0-4.5); HEMATOCRIT 29.5 % (32.4-45.2); HEMOGLOBIN 9.7 GM/dL (10.7-15.3); LYMPH % 35.6 % (8-40); MCH 30.2 pg (25.7-33.7); MCHC 32.9 g/dl (32.0-36.0); MEAN CELL VOLUME 91.9 fl (80-96); MEAN PLT VOLUME 9.6 fl (7.5-11.1); MONO % 11.4 % (3.8-10.2); NEUT % 48.9 % (42.8-82.8); PLATELET COUNT 75 K/MM3 (134-434); RBC 3.21 M/mm3 (3.60-5.2); RDW 18.2 % (11.6-15.6); WHITE BLOOD COUNT 2.6 K/mm3 (4.0-10.0)
[2017-11-12 07:15] LABS: INR 2.15 (0.82-1.09); PROTHROMBIN TIME (PATIENT) 24.3 SEC (9.7-13.0)
[2017-11-12] MEDS: guaiFENesin 200 MG/10 ML 10 ML UNIT-DOSE CUPS PO PRN ×2 (07:18→21:04)
[2017-11-12 07:45] LABS: CHLORIDE 109 mmol/L (98-107); POTASSIUM 3.4 mmol/L (3.5-5.1); SODIUM 142 mmol/L (136-145)
[2017-11-12] MEDS: PROTEASE PO SCH ×3 (07:53→18:03)
[2017-11-12] MEDS: LIPASE PO SCH ×3 (07:53→18:03)
[2017-11-12] MEDS: AMYLASE PO SCH ×3 (07:53→18:03)
[2017-11-12 07:56] LABS: ANION GAP 7 (8-16); BLOOD UREA NITROGEN 13 mg/dL (7-18); CO2 26 mmol/L (21-32); CREATININE 0.7 mg/dL (0.55-1.02); GLUCOSE,RANDOM 97 mg/dL (74-106)
[2017-11-12] MEDS ORDERED: PT OWN MED DRAWER 7, Y5N ONE (09:39)
[2017-11-12] MEDS: CHOLECALCIFEROL (VITAMIN D3) 1,000 UNIT TABLET (FP) PO SCH (09:53)
[2017-11-12] MEDS: MULTIVITAMINS (DAILY MVI) TABLET (FP) PO SCH (09:53)
[2017-11-12] MEDS: LACTOBACILLUS ACIDOPHILUS 1 TABLET PO SCH ×2 (09:53→21:04)
[2017-11-12] MEDS: traMADol HCL 50 MG TABLET PO SCH (09:53)
[2017-11-12] MEDS: ASPIRIN COATED 81 MG TABLET.EC PO SCH (09:53)
[2017-11-12] MEDS: METOPROLOL TARTRATE 25 MG TABLET (FP) PO SCH ×2 (09:53→21:08)
[2017-11-12] MEDS: FAMOTIDINE 20 MG/50 ML IVPB 20 MG/50 ML MG IVPB SCH (09:55)
--- NOTE | 2017-11-12 09:59 | PN ---
Progress Note, Physician History of Present Illness: No CV complaints No chest pain or dyspnea Tele: NSR 90s with PVCs, couplets - Current Medication List Current Medications: Active Medications Acetaminophen (Tylenol -) 650 mg PO Q4H PRN PRN Reason: FEVER Last Admin: 11/11/17 13:34 Dose: 650 mg Aspirin (Ecotrin -) 81 mg PO DAILY [facility] Last Admin: 11/12/17 09:53 Dose: 81 mg Atorvastatin Calcium (Lipitor -) 10 mg PO [facility] Last Admin: 11/11/17 22:24 Dose: 10 mg Cholecalciferol (Vitamin D3 -) 2,000 unit PO DAILY [facility] Last Admin: 11/12/17 09:53 Dose: 2,000 unit Enalapril Maleate (Vasotec -) 2.5 mg PO [facility] Last Admin: 11/11/17 22:25 Dose: Not Given Guaifenesin (Robitussin -) 10 ml PO Q8H PRN PRN Reason: COUGH Last Admin: 11/12/17 07:18 Dose: 10 ml Hydrocortisone Acetate (Anusol Hc Suppository -) 25 mg RC [facility] Last Admin: 11/11/17 23:11 Dose: Not Given Famotidine/Sodium Chloride (Pepcid 20 Mg Premixed Ivpb -) 20 mg in 50 mls @ 100 mls/hr IVPB BID [facility] Last Admin: 11/12/17 09:55 Dose: 100 mls/hr Lactobacillus Acidophilus (Bacid -) 1 tab PO BID [facility] Last Admin: 11/12/17 09:53 Dose: 1 tab Metoclopramide HCl (Reglan -) 10 mg PO TIDAC [facility] Last Admin: 11/12/17 06:23 Dose: Not Given Metoprolol Tartrate (Lopressor -) 25 mg PO BID [facility] Last Admin: 11/12/17 09:53 Dose: 25 mg Multivitamins/Minerals/Vitamin C (Tab-A-Vit -) 1 tab PO DAILY [facility] Last Admin: 11/12/17 09:53 Dose: 1 tab Patient's Own Medication (Non- Formulary) (Lipase/Protease/Amylase [ Creon 24, 000 Units] 2 cap PO TIDCM [facility] Last Admin: 11/12/17 07:53 Dose: 2 cap Non-Formulary Med ( Patient's Own Med Creon 24,000 Units) 1 each PO DAILY PRN PRN Reason: EXTRA SNACK Ondansetron HCl (Zofran Injection) 4 mg IVPUSH Q6H PRN PRN Reason: NAUSEA Sodium Chloride (Normal Saline -) 75 ml IV NOW [facility] Last Admin: 11/12/17 01:42 Dose: Not Given Tramadol HCl (Ultram -) 50 mg PO DAILY [facility] Last Admin: 11/12/17 09:53 Dose: 50 mg Warfarin Sodium (Coumadin -) 1.5 mg PO MoWe@1800 [facility] Warfarin Sodium (Coumadin -) 1 mg PO SuTuThFrSa@1800 [facility] Last Admin: 11/11/17 17:37 Dose: 1 mg - Objective Vital Signs: Vital Signs Temperature 98.2 F 11/12/17 06:00 Pulse Rate 77 11/12/17 06:00 Respiratory Rate 17 11/12/17 06:00 Blood Pressure 99/62 11/12/17 06:00 O2 Sat by Pulse Oximetry (%) 96 11/11/17 21:00 Constitutional: Yes: No Distress, Calm Eyes: Yes: WNL HENT: Yes: WNL Neck: Yes: WNL Cardiovascular: Yes: Regular Rate and Rhythm Respiratory: Yes: CTA Bilaterally Gastrointestinal: Yes: Normal Bowel Sounds Musculoskeletal: Yes: WNL Extremities: Yes: WNL Edema: No Labs: CBC, BMP 11/12/17 06:30 11/12/17 06:30 INR, PTT INR 2.15 (0.82-1.09) H 11/12/17 06:30 Assessment/Plan 77 yo female with metastatic pancreatic [id number] CAB, Afib on coumadin now admitted with febrile illness with elevated lactate and (+) troponin (+) troponin -Likely demand related from ongoing febrile illness -Doubty ACS here -Troponin trend is flat -Contineu Asa, statin -Continue treatment underlying febrile illness as per ID 2) CAD -s/p CAB -No chest pain ad ECG with LBBB (likely old) 3) AFib -Rate controlled -INR 2.1 (goal 2-3) -Continue coumadin 1.5mg daily -Continue to Monitor Platelet count (heme consulted) 4) HTN -BP on lower side -Will Hold ACEi in setting of ?SIRS.
--- NOTE | 2017-11-12 10:33 | PN ---
Progress Note (short form) - Note Progress Note: No new complaints. Afebrile past 24 hours. No significant events overnight. Inpatient Meds reviewed. Current Medications Generic Name Dose Route Start Last Admin Trade Name Freq PRN Reason Stop Dose Admin Acetaminophen 650 mg 11/10/17 18:17 11/11/17 13:34 Tylenol - PO 650 mg Q4H PRN Administration FEVER Aspirin 81 mg 11/11/17 10:00 11/12/17 09:53 Ecotrin - PO 81 mg DAILY [facility] Administration Atorvastatin Calcium 10 mg 11/11/17 22:00 11/11/17 22:24 Lipitor - PO 10 mg HS [facility] Administration Cholecalciferol 2,000 unit 11/11/17 12:00 11/12/17 09:53 Vitamin D3 - PO 2,000 unit DAILY [facility] Administration Guaifenesin 10 ml 11/11/17 10:21 11/12/17 07:18 Robitussin - PO 10 ml Q8H PRN Administration COUGH Hydrocortisone Acetate 25 mg 11/10/17 22:00 11/11/17 23:11 Anusol Hc Suppository - RC Not Given HS [facility] Famotidine/Sodium Chloride 20 mg in 50 mls @ 100 mls/hr 11/11/17 10:30 09:55 Pepcid 20 Mg Premixed Ivpb - IVPB 100 mls/hr BID [facility] Administration Lactobacillus Acidophilus 1 tab 11/10/17 22:00 11/12/17 09:53 Bacid - PO 1 tab BID [facility] Administration Metoclopramide HCl 10 mg 11/11/17 07:00 11/12/17 06:23 Reglan - PO Not Given TIDAC [facility] Metoprolol Tartrate 25 mg 11/10/17 22:00 11/12/17 09:53 Lopressor - PO 25 mg BID [facility] Administration Multivitamins/Minerals/Vitamin C 1 tab 11/11/17 10:00 11/12/17 09:53 Tab-A-Vit - PO 1 tab DAILY [facility] Administration Patient's Own 2 cap 11/11/17 12:00 11/12/17 07:53 Medication (Non- PO 2 cap Formulary) (Lipase/ TIDCM [facility] Administration Protease/Amylase [ Creon 24,000 Units] Non-Formulary Med ( 1 each 11/11/17 11:40 Patient's Own Med PO Creon 24,000 Units) DAILY PRN EXTRA SNACK Ondansetron HCl 4 mg 11/11/17 10:20 Zofran Injection IVPUSH Q6H PRN NAUSEA Sodium Chloride 75 ml 11/11/17 01:30 11/12/17 01:42 Normal Saline - IV Not Given NOW [facility] Tramadol HCl 50 mg 11/11/17 10:00 11/12/17 09:53 Ultram - PO 50 mg DAILY [facility] Administration Warfarin Sodium 1.5 mg 11/13/17 18:00 Coumadin - PO MoWe@1800 [facility] Warfarin Sodium 1 mg 11/11/17 18:00 11/11/17 17:37 Coumadin - PO 1 mg SuTuThFrSa@1800 [facility] Administration On Examination: Last Vital Signs Temp Pulse Resp BP Pulse Ox 98.2 F 77 17 99/62 96 11/12/17 06:00 11/12/17 06:00 11/12/17 06:00 11/12/17 06:00 11/11/17 21:00 General: In no acute distress, lying comfortably in bed. Extremities: No pallor or icterus. No pedal edema. No palpable lymphadenopathy. CVS: S1, S2, regular, no gallop or murmur. Chest: good air entry bilaterally, clear Abdomen: Non-distended, non-tender, no palpable organomegaly. Neuro: Alert, oriented, non-focal. Labs: CBC, BMP 11/12/17 06:30 11/12/17 06:30 Assessment/Plan Patient with metastatic pancreatic cancer, not on recent treatment - (awaiting RTX), presents with fever attributed to viral RTI, and found to have mild thrombocytopenia. Mild normocytic anemia, NOT neutropenic. Apparently history of MDS, as per patient's history, but no clear evidence thereof. Drop in platelet count since admission is a very non-specific finding - may well be attributable to her current infection, superimposed on an already compromised marrow (possible MDS, prior chemotherapy). However platelet and neutrophil count continue to trend downwards, of concern. No other convincing signs of sepsis, and afebrile since admission. Positive urine culture of questionable significance - would defer to ID whether Abics are warranted at this time. Continue to monitor CBC - will follow.
--- NOTE | 2017-11-12 11:06 | PN ---
Progress Note, Physician Chief Complaint: Today feels improved, tolerating PO, yesterday had episode of diarrhea and some epistaxis - Current Medication List Current Medications: Active Medications Acetaminophen (Tylenol -) 650 mg PO Q4H PRN PRN Reason: FEVER Last Admin: 11/11/17 13:34 Dose: 650 mg Aspirin (Ecotrin -) 81 mg PO DAILY [facility] Last Admin: 11/12/17 09:53 Dose: 81 mg Atorvastatin Calcium (Lipitor -) [address] [facility] Last Admin: 11/11/17 22:24 Dose: 10 mg Cholecalciferol (Vitamin D3 -) 2,000 unit PO DAILY [facility] Last Admin: 11/12/17 09:53 Dose: 2,000 unit Guaifenesin (Robitussin -) 10 ml PO Q8H PRN PRN Reason: COUGH Last Admin: 11/12/17 07:18 Dose: 10 ml Hydrocortisone Acetate (Anusol Hc Suppository -) [address] [facility] Last Admin: 11/11/17 23:11 Dose: Not Given Famotidine/Sodium Chloride (Pepcid 20 Mg Premixed Ivpb -) 20 mg in 50 mls @ 100 mls/hr IVPB BID [facility] Last Admin: 11/12/17 09:55 Dose: 100 mls/hr Lactobacillus Acidophilus (Bacid -) 1 tab PO BID [facility] Last Admin: 11/12/17 09:53 Dose: 1 tab Metoclopramide HCl (Reglan -) 10 mg PO TIDAC [facility] Last Admin: 11/12/17 06:23 Dose: Not Given Metoprolol Tartrate (Lopressor -) 25 mg PO BID [facility] Last Admin: 11/12/17 09:53 Dose: 25 mg Multivitamins/Minerals/Vitamin C (Tab-A-Vit -) 1 tab PO DAILY [facility] Last Admin: 11/12/17 09:53 Dose: 1 tab Patient's Own Medication (Non- Formulary) (Lipase/Protease/Amylase [ Creon 24, 000 Units] 2 cap PO TIDCM [facility] Last Admin: 11/12/17 07:53 Dose: 2 cap Non-Formulary Med ( Patient's Own Med Creon 24,000 Units) 1 each PO DAILY PRN PRN Reason: EXTRA SNACK Ondansetron HCl (Zofran Injection) 4 mg IVPUSH Q6H PRN PRN Reason: NAUSEA Sodium Chloride (Normal Saline -) 75 ml IV NOW [facility] Last Admin: 11/12/17 01:42 Dose: Not Given Tramadol HCl (Ultram -) 50 mg PO DAILY [facility] Last Admin: 11/12/17 09:53 Dose: 50 mg Warfarin Sodium (Coumadin -) 1.5 mg PO MoWe@1800 [facility] Warfarin Sodium (Coumadin -) 1 mg PO SuTuThFrSa@1800 [facility] Last Admin: 11/11/17 17:37 Dose: 1 mg - Objective Vital Signs: Vital Signs Temperature 98.2 F 11/12/17 06:00 Pulse Rate 77 11/12/17 06:00 Respiratory Rate 17 11/12/17 06:00 Blood Pressure 99/62 11/12/17 06:00 O2 Sat by Pulse Oximetry (%) 96 11/11/17 21:00 Elderly F not in distress HEENT; Mm moist nasal congestion NECK: No JVd No Bruit CHEST: CTA B/L CVS: S1S2 R no m/g/r ABD: No distention, non tender Bs + EXT: No edema feet no calf tenderness, Pulses + RESPIRATORY DIRECTOR: AOX3 non focal Labs: CBC, BMP 11/12/17 06:30 11/12/17 06:30 INR, PTT INR 2.15 (0.82-1.09) H 11/12/17 06:30 Problem List - Problems (1) Fever Assessment/Plan: Most likely viral; sickness, close observation, F/U Pending culture, no source so far F/U Serial CBC, patient doesn't want abx as she has H/O C Diff, F/U ID Recommondation, Flu swanb is -ve. Code(s): R50.9 - FEVER, UNSPECIFIED Qualifiers: Fever type: unspecified Qualified Code(s): R50.9 - Fever, unspecified (2) Symptoms of upper respiratory infection (URI) Assessment/Plan: Cont Symptomatic treatment fever curve, cough syrup Code(s): R09.89 - OTH SYMPTOMS AND SIGNS INVOLVING THE CIRC AND RESP SYSTEMS (3) Elevated troponin Assessment/Plan: Asymptomatic no acute St t chnages can be Demand ischemmia, Cardiology consult, serial CE and ECHO cont Home meds. Code(s): R79.89 - OTHER SPECIFIED ABNORMAL FINDINGS OF BLOOD CHEMISTRY (4) LOREE (acute kidney injury) Assessment/Plan: Mild Elvation of BUN/Creat improved after IV Hydration. Code(s): N17.9 - ACUTE KIDNEY FAILURE, UNSPECIFIED (5) Dehydration Assessment/Plan: Resolved Code(s): E86.0 - DEHYDRATION (6) ASHD (arteriosclerotic heart disease) Assessment/Plan: Cont Home meds Code(s): I25.10 - ATHSCL HEART DISEASE OF [place] CORONARY ARTERY W/O ANG PCTRS (7) Pancreatic cancer Assessment/Plan: Recurrent F/U at [facility] no active issue Code(s): C25.9 - MALIGNANT NEOPLASM OF PANCREAS, UNSPECIFIED (8) GERD (gastroesophageal reflux disease) Assessment/Plan: Cont Famotidine Code(s): K21.9 - GASTRO-ESOPHAGEAL REFLUX DISEASE WITHOUT ESOPHAGITIS (9) HTN (hypertension) Assessment/Plan: BP lower side IV Hydration Hold BP meds re evaluate in am. Code(s): I10 - ESSENTIAL (PRIMARY) HYPERTENSION (10) Afib Assessment/Plan: On AC Coumadin INR therapeutic cont coumadin 1.5 mg f/u INR. Code(s): I48.91 - UNSPECIFIED ATRIAL FIBRILLATION Qualifiers: Atrial fibrillation type: paroxysmal Qualified Code(s): I48.0 - Paroxysmal atrial fibrillation (11) Thrombocytopenia Assessment/Plan: Drop in platelete F/U serial platelete count , Hematology consult Code(s): D69.6 - THROMBOCYTOPENIA, UNSPECIFIED (12) CHF (congestive heart failure), NYHA class II Assessment/Plan: Unknown EF Hold Toresamide for Dehydration and Hypotention F.?U ECHO, re introduce Diuretics as per volume status. Code(s): I50.9 - HEART FAILURE, UNSPECIFIED
[2017-11-12] MEDS ORDERED: POTASSIUM CHLORIDE ORAL LIQUID 20 MEQ/15 ML PO ONE (12:34)
[2017-11-12] MEDS: ACLIDINIUM BROMIDE PO SCH (13:44)
[2017-11-12] MEDS: WARFARIN NA 1 MG TABLET (FP) PO SCH (17:01)
[2017-11-12] MEDS: ATORVASTATIN CA 10 MG TABLET (FP) PO SCH (21:05)
[2017-11-12] MEDS: HYDROCORTISONE ACETATE 25 MG/SUPP.RECT RC SCH (21:05)
[2017-11-12] MEDS: RANITIDINE HCL 150 MG TABLET (FP) PO SCH (21:08)
--- NOTE | 2017-11-12 22:14 | EKG ---
Test Reason : Blood Pressure : / mmHG Vent. Rate : 087 BPM Atrial Rate : 087 BPM P-R Int : 190 ms QRS Dur : 168 ms QT Int : 436 ms P-R-T Axes : 090 -43 137 degrees QTc Int : 524 ms SINUS RHYTHM WITH OCCASIONAL PREMATURE VENTRICULAR COMPLEXES LEFT AXIS DEVIATION LEFT BUNDLE BRANCH BLOCK ABNORMAL ECG WHEN COMPARED WITH ECG OF 10-NOV-2017 17:24, PREMATURE VENTRICULAR COMPLEXES ARE NOW PRESENT Confirmed by MARIO CHILDERS MD ([id number]) on 11/12/2017 10:13:45 PM Referred By: Anna GHOSH Confirmed By:MARIO CHILDERS MD
--- NOTE | 2017-11-12 22:24 | EKG ---
Test Reason : Blood Pressure : / mmHG Vent. Rate : 067 BPM Atrial Rate : 067 BPM P-R Int : 186 ms QRS Dur : 166 ms QT Int : 500 ms P-R-T Axes : 049 -48 148 degrees QTc Int : 528 ms NORMAL SINUS RHYTHM LEFT AXIS DEVIATION LEFT BUNDLE BRANCH BLOCK ABNORMAL ECG WHEN COMPARED WITH ECG OF 24-MAY-2016 18:29, VENT. RATE HAS DECREASED BY 43 BPM Confirmed by MARIO HCILDERS MD ([id number]) on 11/12/2017 10:24:34 PM Referred By: Confirmed By:MARIO CHILDERS MD
[2017-11-13] MEDS: ACETAMINOPHEN 325 MG TABLET (FP) PO PRN ×2 (00:41→08:33)
[2017-11-13] MEDS: SODIUM CHLORIDE 0.9% 500 ML INFUS.BAG IV SCH (02:02)
[2017-11-13] MEDS: METOCLOPRAMIDE HCL 10 MG TABLET (FP) PO SCH ×3 (06:14→17:05)
[2017-11-13 06:17] LABS: BASO % 0.4 % (0-2.0); EOS % 1.1 % (0-4.5); HEMATOCRIT 28.7 % (32.4-45.2); HEMOGLOBIN 9.4 GM/dL (10.7-15.3); MCH 30.3 pg (25.7-33.7); MCHC 32.9 g/dl (32.0-36.0); MEAN CELL VOLUME 92.2 fl (80-96); MEAN PLT VOLUME 9.7 fl (7.5-11.1); MONO % 8.6 % (3.8-10.2); NEUT % 64.9 % (42.8-82.8); PLATELET COUNT 78 K/MM3 (134-434); RBC 3.11 M/mm3 (3.60-5.2); RDW 18.3 % (11.6-15.6); WHITE BLOOD COUNT 2.1 K/mm3 (4.0-10.0)
[2017-11-13] MEDS: guaiFENesin 200 MG/10 ML 10 ML UNIT-DOSE CUPS PO PRN ×2 (06:19→22:04)
[2017-11-13 06:28] LABS: INR 2.64 (0.82-1.09); PROTHROMBIN TIME (PATIENT) 29.8 SEC (9.7-13.0)
[2017-11-13 06:52] LABS: ANION GAP 9 (8-16); BLOOD UREA NITROGEN 13 mg/dL (7-18); CALCIUM 8.2 mg/dL (8.5-10.1); CHLORIDE 110 mmol/L (98-107); CO2 23 mmol/L (21-32); GLUCOSE,RANDOM 111 mg/dL (74-106); POTASSIUM 4.2 mmol/L (3.5-5.1); SODIUM 142 mmol/L (136-145)
[2017-11-13 07:04] LABS: CREATININE 0.8 mg/dL (0.55-1.02)
[2017-11-13] MEDS: PROTEASE PO SCH ×3 (08:33→17:06)
[2017-11-13] MEDS: LIPASE PO SCH ×3 (08:33→17:06)
[2017-11-13] MEDS: AMYLASE PO SCH ×3 (08:33→17:06)
[2017-11-13] MEDS: traMADol HCL 50 MG TABLET PO SCH ×2 (08:34→11:23)
--- NOTE | 2017-11-13 10:08 | PN ---
Progress Note, Physician - Current Medication List Current Medications: Active Medications Acetaminophen (Tylenol -) 650 mg PO Q4H PRN PRN Reason: FEVER Last Admin: 11/13/17 08:33 Dose: 650 mg Aspirin (Ecotrin -) 81 mg PO DAILY [facility] Last Admin: 11/12/17 09:53 Dose: 81 mg Atorvastatin Calcium (Lipitor -) 10 mg PO HS [facility] Last Admin: 11/12/17 21:05 Dose: 10 mg Cholecalciferol (Vitamin D3 -) 2,000 unit PO DAILY [facility] Last Admin: 11/12/17 09:53 Dose: 2,000 unit Guaifenesin (Robitussin -) 10 ml PO Q8H PRN PRN Reason: COUGH Last Admin: 11/13/17 06:19 Dose: 10 ml Hydrocortisone Acetate (Anusol Hc Suppository -) 25 mg [facility] Last Admin: 11/12/17 21:05 Dose: 25 mg Lactobacillus Acidophilus (Bacid -) 1 tab PO BID [facility] Last Admin: 11/12/17 21:04 Dose: 1 tab Metoclopramide HCl (Reglan -) 10 mg PO TIDAC [facility] Last Admin: 11/13/17 06:14 Dose: Not Given Metoprolol Tartrate (Lopressor -) 25 mg PO BID [facility] Last Admin: 11/12/17 21:08 Dose: Not Given Multivitamins/Minerals/Vitamin C (Tab-A-Vit -) 1 tab PO DAILY [facility] Last Admin: 11/12/17 09:53 Dose: 1 tab Patient's Own Medication (Non- Formulary) (Lipase/Protease/Amylase [ Creon 24, 000 Units] 2 cap PO TIDCM [facility] Last Admin: 11/13/17 08:33 Dose: 2 cap Non-Formulary Med ( Patient's Own Med Creon 24,000 Units) 1 each PO DAILY PRN PRN Reason: EXTRA SNACK Ondansetron HCl (Zofran Injection) 4 mg IVPUSH Q6H PRN PRN Reason: NAUSEA Ranitidine HCl (Zantac -) 150 mg PO BID [facility] Last Admin: 11/12/17 21:08 Dose: 150 mg Sodium Chloride (Normal Saline -) 75 ml IV NOW [facility] Last Admin: 11/13/17 02:02 Dose: 75 ml Tramadol HCl (Ultram -) 50 mg PO DAILY [facility] Last Admin: 11/13/17 08:34 Dose: 50 mg Warfarin Sodium (Coumadin -) 1.5 mg PO MoWe@1800 [facility] Warfarin Sodium (Coumadin -) 1 mg PO SuTuThFrSa@1800 [facility] Last Admin: 11/12/17 17:01 Dose: 1 mg - Objective Vital Signs: Vital Signs Temperature 98.1 F 11/13/17 08:53 Pulse Rate 120 H 11/13/17 08:53 Respiratory Rate 22 11/13/17 08:53 Blood Pressure 145/89 11/13/17 08:53 O2 Sat by Pulse Oximetry (%) 96 11/13/17 08:56 Labs: CBC, BMP 11/13/17 06:00 11/13/17 06:00 INR, PTT INR 2.64 (0.82-1.09) H 11/13/17 06:00 Assessment/Plan echo 05/2016: severe lve, sev dec lvef, global hk. rv tds. moderate leda, severe mr, mod-sev tr, rvsp 30-40 a/p: 76 year old female with pancreatic cancer s/p Whipples procedure ( reportedly only partial resection possible), on periodic chemo, sys CHF, cad s/ p 1V cabg 1999 (isolated ostial LAD dz then), NSTEMi in setting of c. diff colitis/sepsis 2016, old LBBB here with low grade fever, hi lactate. low-grade fever (100.1), lactic acidosis: -workup and tx per hospitalist cad s/p cabg, elevated troponin -prior 1V cabg 1999 (isolated ostial LAD dz then). follows with outside cardio. -s/p mult admits with trop elevation, treated as nstemi vs demand ischemia on those visits. invasive mgmt has been deferred given pt's known incurable pancreatic cancer dx, and this risk/benefit decision/discussion has been left to her outpt cardio. -here again 06/28 with no acute cardiac sx's, trop 12 (c. dif colitis/sepsis then )--treated with UFH and DAPT -currently with flat trop trend, interm range (0.2-->0.3-->0.2), LBBB (old) on ECG. no cardiac sx's--not c/w ACS. -troponins likely chronic, sec to syst CHF and possibly chronic underlying CAD treated medically -cont home bb chronic systolic chf: -known severely reduced LVEF, on torsemide 20mg qd at home -declined ICD in past when rec'd by her outpt cardio -echo here 06/28 showing chronically severely reduced lvef, also with severe MR reported--in CHF at that time -cont home metopr -KRYSTEN-I previously deferred sec to hypotension. remains bp's to 90s here. no change -on torsemide 50 qd at home, held here and briefly hydrated sec to infectious process, bp 90s, creat 1.3. -creat normalized. WOULD BE VERY CAUTIOUS WITH IVF PT HIGH RISK FOR ACUTE CHF. -defer torsemide for now, observe clinically VTach: -occasional brief runs NSVT on prior hosp tele -previously declined ICD, then dx'd with incurable pancreatic cancer and has had ongoing outpt discussions with her outside cardio -cont bb PAT: -runs of long R-P tach on prior hosp tele--due to wide QRS cannot definitively exclude 2:1 AT/AFL (a-rate would be 375/min if 2nd p waves buried in QRS), no further significant episodes -AC deferred given no definite AFL/fib seen -treated with bb
--- NOTE | 2017-11-13 10:14 | PN ---
Progress Note (short form) - Note Progress Note: Patient seen and examined Chart reviewed. Currently up OOB walking in hallway with PT and now sitting up on the side of the bed. Alert, responsive and appropriate. Denies new chest discomfort or dyspnea. No new fever or rigors Diarrhea resolved Denies urinary symptoms. Labs, radiologic procedures and progress/treasury consultant notes reviewed. Medication list reviewed. Positive urine culture noted, currently without therapy. Microbiology 11/10/17 11:20 Urine - Urine Clean Catch Urine Culture - Preliminary Lactose Fermenting Neg Bacilli Selected Entries 11/13/17 11/13/17 11/13/17 06:00 08:53 08:56 Temperature 98.1 F Pulse Rate 120 H Respiratory 22 Rate Blood Pressure 145/89 O2 Sat by Pulse 96 Oximetry (%) Oxygen Delivery Room Air Method Weight 128 lb 3.2 oz Laboratory Tests 11/13/17 11/13/17 11/13/17 06:00 06:00 06:00 WBC 2.1 L Hgb 9.4 L Hct 28.7 L Plt Count 78 L INR 2.64 H Sodium 142 Potassium 4.2 Chloride 110 H Carbon Dioxide 23 BUN 13 Creatinine 0.8 Random Glucose 111 H Calcium 8.2 L TSH 0.20 L Chest Clear No rhonchi Cor RRR No new murmur Telemetry Sinus Occasional PVC Abd Soft nontender BS positive Ext Non-pitting edema Neuro No new focal deficit Assessment and Plan Fever 103 at home Currently stable Liklely viral syndrome given URI-type symptoms UTI of note Will discuss with ID if need to treat URI As above UTI As above Pancytopenia H/O MDS with recent BMBx reportedly w/o gross pathology Pancreatic cancer post surgery and chemotherapy with recent recurrence To restart Xeloda therapy Recent elevation of LFTs Low TSH Recheck with Free t4 and Free T3 Possible "euthyroid sick" Elevated troponins Likley demand ischemia as opposed to an acute coronary syndrome ASHD/CHF H/O cardiomyopathy Has been on warfarin for h/o intra-cardiac thrombus, not for AFib To check ECHO H/O C Diff HTN Stable Renal insufficiency/ dehydration Stable BUN/Cr 13/0.8 Continue current Rx Possible discharge in the next 24 hours
[2017-11-13] MEDS: ASPIRIN COATED 81 MG TABLET.EC PO SCH (11:22)
[2017-11-13] MEDS: MULTIVITAMINS (DAILY MVI) TABLET (FP) PO SCH (11:22)
[2017-11-13] MEDS: LACTOBACILLUS ACIDOPHILUS 1 TABLET PO SCH ×2 (11:22→21:55)
[2017-11-13] MEDS: METOPROLOL TARTRATE 25 MG TABLET (FP) PO SCH ×3 (11:22→21:55)
[2017-11-13] MEDS: CHOLECALCIFEROL (VITAMIN D3) 1,000 UNIT TABLET (FP) PO SCH (11:22)
[2017-11-13] MEDS: RANITIDINE HCL 150 MG TABLET (FP) PO SCH ×3 (11:22→22:01)
--- NOTE | 2017-11-13 13:06 | PN ---
Progress Note, Physician History of Present Illness: Urine c/s noted patient denies dysuria/ hematuria/ urgency No suprapubic or flank pain No fever/ chills Afebrile Remains leukopenic - Current Medication List Current Medications: Active Medications Acetaminophen (Tylenol -) 650 mg PO Q4H PRN PRN Reason: FEVER Last Admin: 11/13/17 08:33 Dose: 650 mg Aspirin (Ecotrin -) 81 mg PO DAILY [facility] Last Admin: 11/13/17 11:22 Dose: 81 mg Atorvastatin Calcium (Lipitor -) 10 mg PO HS [facility] Last Admin: 11/12/17 21:05 Dose: 10 mg Cholecalciferol (Vitamin D3 -) 2,000 unit PO DAILY [facility] Last Admin: 11/13/17 11:22 Dose: 2,000 unit Guaifenesin (Robitussin -) 10 ml PO Q8H PRN PRN Reason: COUGH Last Admin: 11/13/17 06:19 Dose: 10 ml Hydrocortisone Acetate (Anusol Hc Suppository -) [address] [facility] Last Admin: 11/12/17 21:05 Dose: 25 mg Lactobacillus Acidophilus (Bacid -) 1 tab PO BID [facility] Last Admin: 11/13/17 11:22 Dose: 1 tab Metoclopramide HCl (Reglan -) 10 mg PO TIDAC [facility] Last Admin: 11/13/17 11:22 Dose: 10 mg Metoprolol Tartrate (Lopressor -) 25 mg PO BID [facility] Last Admin: 11/13/17 11:22 Dose: 25 mg Multivitamins/Minerals/Vitamin C (Tab-A-Vit -) 1 tab PO DAILY [facility] Last Admin: 11/13/17 11:22 Dose: 1 tab Patient's Own Medication (Non- Formulary) (Lipase/Protease/Amylase [ Creon 24, 000 Units] 2 cap PO TIDCM [facility] Last Admin: 11/13/17 11:23 Dose: 2 cap Non-Formulary Med ( Patient's Own Med Creon 24,000 Units) 1 each PO DAILY PRN PRN Reason: EXTRA SNACK Ranitidine HCl (Zantac -) 150 mg PO BID [facility] Last Admin: 11/13/17 11:22 Dose: 150 mg Tramadol HCl (Ultram -) 50 mg PO DAILY [facility] Last Admin: 11/13/17 11:23 Dose: Not Given Warfarin Sodium (Coumadin -) 1.5 mg PO MoWe@1800 [facility] Warfarin Sodium (Coumadin -) 1 mg PO SuTuThFrSa@1800 [facility] Last Admin: 11/12/17 17:01 Dose: 1 mg - Objective Vital Signs: Vital Signs Temperature 98.1 F 11/13/17 08:53 Pulse Rate 120 H 11/13/17 08:53 Respiratory Rate 22 11/13/17 08:53 Blood Pressure 145/89 11/13/17 08:53 O2 Sat by Pulse Oximetry (%) 96 11/13/17 08:56 Constitutional: Yes: Other (+ Sinus congestion) Cardiovascular: Yes: Regular Rate and Rhythm, S1, S2 Respiratory: Yes: CTA Bilaterally Gastrointestinal: Yes: Normal Bowel Sounds, Soft. No: Tenderness Edema: No Labs: CBC, BMP 11/13/17 06:00 11/13/17 06:00 INR, PTT INR 2.64 (0.82-1.09) H 11/13/17 06:00 Assessment/Plan +Urine c/s- asymptomatic bacteruria URI ? Leukopenia/ thrombocytopenis secondary to viral infection ANC > 1300 Pancreatic ca Hx moderately severe C. difficile Would continue to observe off antibiotics in light of absence of symptoms and hx C difficile Hematology note appreciated Outpatient oncology follow up
--- NOTE | 2017-11-13 13:56 | PN ---
Progress Note (short form) - Note Progress Note: CC: abnormal trop S: due to sbp's in the 100's, has not been getting her evening lopressor. IVF stopped today. + diarrhea today. no cp, palps, dizziness, sob. ambulating in the halls, + weakness. cards: Dr. Myriam hill at [facility] Current Medications Acetaminophen (Tylenol -) 650 mg PO Q4H PRN PRN Reason: FEVER Last Admin: 11/13/17 08:33 Dose: 650 mg Aspirin (Ecotrin -) 81 mg PO DAILY [facility] Last Admin: 11/13/17 11:22 Dose: 81 mg Atorvastatin Calcium (Lipitor -) 10 mg PO HS [facility] Last Admin: 11/12/17 21:05 Dose: 10 mg Cholecalciferol (Vitamin D3 -) 2,000 unit PO DAILY [facility] Last Admin: 11/13/17 11:22 Dose: 2,000 unit Guaifenesin (Robitussin -) 10 ml PO Q8H PRN PRN Reason: COUGH Last Admin: 11/13/17 06:19 Dose: 10 ml Hydrocortisone Acetate (Anusol Hc Suppository -) 25 mg RC [facility] Last Admin: 11/12/17 21:05 Dose: 25 mg Lactobacillus Acidophilus (Bacid -) 1 tab PO BID [facility] Last Admin: 11/13/17 11:22 Dose: 1 tab Metoclopramide HCl (Reglan -) 10 mg PO TIDAC [facility] Last Admin: 11/13/17 11:22 Dose: 10 mg Metoprolol Tartrate (Lopressor -) 25 mg PO BID [facility] Last Admin: 11/13/17 11:22 Dose: 25 mg Multivitamins/Minerals/Vitamin C (Tab-A-Vit -) 1 tab PO DAILY [facility] Last Admin: 11/13/17 11:22 Dose: 1 tab Patient's Own Medication (Non- Formulary) (Lipase/Protease/Amylase [ Creon 24, 000 Units] 2 cap PO TIDCM [facility] Last Admin: 11/13/17 11:23 Dose: 2 cap Non-Formulary Med ( Patient's Own Med Creon 24,000 Units) 1 each PO DAILY PRN PRN Reason: EXTRA SNACK Ranitidine HCl (Zantac -) 150 mg PO BID [facility] Last Admin: 11/13/17 11:22 Dose: 150 mg Tramadol HCl (Ultram -) 50 mg PO DAILY [facility] Last Admin: 11/13/17 11:23 Dose: Not Given Warfarin Sodium (Coumadin -) 1.5 mg PO MoWe@1800 [facility] Warfarin Sodium (Coumadin -) 1 mg PO SuTuThFrSa@1800 [facility] Last Admin: 11/12/17 17:01 Dose: 1 mg Vital Signs - 24 hr 11/12/17 11/12/17 11/12/17 15:00 19:30 21:00 Temperature 98.3 F 98.6 F Pulse Rate 85 74 Respiratory 18 17 17 Rate Blood Pressure 105/61 101/60 O2 Sat by Pulse 97 Oximetry (%) 11/13/17 11/13/17 11/13/17 02:00 06:00 08:53 Temperature 97.8 F 97.9 F 98.1 F Pulse Rate 79 83 120 H Respiratory 18 17 22 Rate Blood Pressure 109/52 110/69 145/89 O2 Sat by Pulse Oximetry (%) 11/13/17 08:56 Temperature Pulse Rate Respiratory Rate Blood Pressure O2 Sat by Pulse 96 Oximetry (%) Intake & Output 11/11/17 11/12/17 11/13/17 11/14/17 07:59 07:59 07:59 07:59 Intake Total 325 1485 2295 Balance 325 1485 2295 Weight 136 lb 9.6 oz 128 lb 3.2 oz NAD, calm JVD flat, neck supple ctab, nl effort regular with occasional ectopy nl s1, s2. 2/6 murmur at lsb and apex. + bs soft nt nd ext without e/c/c + dp/pt, no carotid bruits no jaundice, diaphoresis aaox3 CBC, BMP 11/13/17 06:00 11/13/17 06:00 Microbiology 11/10/17 11:20 Urine - Urine Clean Catch Urine Culture - Final Klebsiella Pneumoniae Laboratory Tests 11/12/17 11/13/17 11/13/17 06:30 06:00 06:00 INR 2.64 H Lactic Acid 1.5 TSH 0.20 L ECG on 11/10/2017 at 17:24PM shows NSR with LAD and LBBB ECG on 11/11/2017 at 11: 00AM shows NSR with LAD and LBBB tele: sr/sinus tach, frequent pvc's. cxr: no acute pathology. echo 11/2017: severe lve, severely dec lv fn. nl rv size. mildly dec rv fn. 1 + leda. mod-sev mr. severe tr. rvsp 40-50. dilated ivc. echo 05/2016: severe lve, sev dec lvef, global hk, rv tds, moderate leda, severe mr, mod-sev tr, rvsp 30-40, mild pr outpatient cardiac meds: Atorva 10, Enalapril 2.5 mg/day, Toprol 100 mg/day, Torsemide 50 mg/day, coumadin ASSESSMENT/PLAN 77 yo female with CAD s/p 1v CABG in 1999 for isolated LAD disease and nstemi 05/2016, Severe MR with severe systolic cardiomyopathy, Afib on coumadin, metastatic pancreatic cancer s/p whipple, hx of prior c.diff infection, p/w febrile illness with elevated lactate and (+) troponin Ab troponin (0.2-0.3)/uti/febrile illness -Likely demand in setting of known cad, related from ongoing febrile illness. Doubt ACS here. Troponin trend is flat -Continue Asa, statin (monitor asa while with thrombocytopenic. would hold if platelets decrease < 60). -Continue treatment underlying febrile illness and uti as per ID Cardiomyopathy - patient states she has been on torsemide 50 mg 5 days/week only (holds it 2 days a week.). Weight has been slowly trending down over the past 6 months despite normal appetite. Recently home weights stable in the 130's. - s/p IVF here and weight today still lower than home weight/dry weight. No signs of sx's of heart failure. Ok to con't to hold torsemide. Can resume if weight begins to trend up. Daily weights i/o's. - toprol dose lowered here and enalapril held due to low bp's here. With severe lv dysfunction, her sbp most likely runs on the lower end. Will uptitrate lopressor to 25 bid today (home dose toprol 100 daily). monitor bp. Ok to con't to hold enalapril for now. CAD/known lbbb/hl -s/p CABG and hx of NSTEMI 05/2016. No signs of acs here or anginal sx's. AFib/pancytopenia -Continue coumadin (goal INR 2-3). INR dosing per pmd. Continue to Monitor hgb/Platelet count (heme consulted) - 11/13: uptitrating lopressor dose as mentioned above. hx of prior nsvt/self-limited VT on tele during 06/2016 admit - con't bb. lyte repletion prn. abnormal tsh - eval/mgm't per pmd.
[2017-11-13] MEDS ORDERED: DIPHENOXYLATE 2.5/ATROPINE.025 1 COMBO TABLET PO ONE (15:45)
[2017-11-13] MEDS ORDERED: DIPHENOXYLATE 2.5/ATROPINE.025 1 COMBO TABLET PO PRN (15:45)
[2017-11-13] MEDS ORDERED: WARFARIN NA 1 MG TABLET (FP) PO SCH (18:00)
[2017-11-13] MEDS ORDERED: PT OWN MED DRAWER 7, Y5N ONE (21:28)
[2017-11-13] MEDS: ATORVASTATIN CA 10 MG TABLET (FP) PO SCH (21:55)
[2017-11-13] MEDS: HYDROCORTISONE ACETATE 25 MG/SUPP.RECT RC SCH ×2 (21:56→22:00)
--- NOTE | 2017-11-13 23:24 | PN ---
Progress Note (short form) - Note Progress Note: PAtient seen and examined Denies any complaints Sates she feels much better Keen on going home tomorrow AFVSS Cor: RSR, No murmurs, No gallops Lungs: b/l wheezing Abd: Soft, Normal bowel sounds, No organomegaly Ext:No significant edema Labs/meds reviewed A/P Patient with metastatic pancreatic cancer, being managed at [facility], awaiting treatment, presents with fever attributed to viral RTI, and found to have mild thrombocytopenia. Apparently history of MDS, as per patient's history, but no clear evidence thereof. Drop in platelet count since admission is a very non-specific finding - may well be attributable to her current infection, superimposed on an already compromised marrow (possible MDS, prior chemotherapy). Counts stable will request pulmonary consult- for reactive airway disease/wheezing f/u with [facility] oncologist at discharge
[2017-11-14] MEDS: ACETAMINOPHEN 325 MG TABLET (FP) PO PRN (03:48)
[2017-11-14] MEDS ORDERED: ALBUTEROL SO4 0.083% IH SOL 2.5 MG/3 ML VIAL.NEB. NEB ONE (04:38)
[2017-11-14] MEDS: METOPROLOL TARTRATE 25 MG TABLET (FP) PO SCH (06:44)
[2017-11-14] MEDS: METOCLOPRAMIDE HCL 10 MG TABLET (FP) PO SCH (06:44)
[2017-11-14 07:41] LABS: BASO % 0.7 % (0-2.0); EOS % 2.9 % (0-4.5); HEMATOCRIT 30.5 % (32.4-45.2); LYMPH % 25.8 % (8-40); MCH 30.1 pg (25.7-33.7); MCHC 32.7 g/dl (32.0-36.0); MEAN CELL VOLUME 91.9 fl (80-96); MONO % 8.3 % (3.8-10.2); NEUT % 62.3 % (42.8-82.8); PLATELET COUNT 109 K/MM3 (134-434); RBC 3.32 M/mm3 (3.60-5.2); RDW 17.8 % (11.6-15.6); WHITE BLOOD COUNT 3.7 K/mm3 (4.0-10.0)
[2017-11-14] MEDS: LIPASE PO SCH (07:46)
[2017-11-14] MEDS: PROTEASE PO SCH (07:46)
[2017-11-14] MEDS: AMYLASE PO SCH (07:46)
[2017-11-14 07:47] LABS: CHLORIDE 112 mmol/L (98-107); SODIUM 142 mmol/L (136-145)
[2017-11-14 09:05] LABS: ALBUMIN 2.9 g/dl (3.4-5.0); ALK PHOS 141 U/L (45-117); ANION GAP 10 (8-16); BILIRUBIN,TOTAL 0.7 mg/dL (0.2-1.0); BLOOD UREA NITROGEN 13 mg/dL (7-18); CALCIUM 8.2 mg/dL (8.5-10.1); CO2 20 mmol/L (21-32); CREATININE 0.8 mg/dL (0.55-1.02); GLUCOSE,RANDOM 98 mg/dL (74-106); MAGNESIUM 2.3 mg/dL (1.8-2.4); SGOT/AST 44 U/L (15-37); SGPT/ALT 51 U/L (12-78); TOT PROT 6.3 g/dl (6.4-8.2)
[2017-11-14 09:15] VITALS: BP 131/75; PULSE 93; TEMP 98.8
--- NOTE | 2017-11-14 09:42 | DS ---
Physical Examination Vital Signs: Vital Signs Temperature 98.8 F 11/14/17 09:10 Pulse Rate 93 H 11/14/17 09:10 Respiratory Rate 20 11/14/17 09:10 Blood Pressure 131/75 11/14/17 09:10 O2 Sat by Pulse Oximetry (%) 97 11/14/17 09:00 Constitutional: Yes: No Distress, Calm Eyes: No: Sclera Icterus Cardiovascular: Yes: Pulse Irregular Respiratory: Yes: CTA Bilaterally Edema: Yes (non-pitting) Neurological: Yes: Alert, Oriented Labs: CBC, BMP 11/14/17 06:56 11/14/17 06:56 Discharge Summary Reason For Visit: FEVER; ELEVATED TROPONIN LEVELS Current Active Problems Afib (Chronic) CHF (congestive heart failure), NYHA class II (Chronic) Fever (Chronic) Thrombocytopenia (Chronic) Hospital Course: Please refer to daily notes and problem list Admitted with fever up to 103 at home Findings c/w possible viral URI UTI also noted but on the advice of ID we will follow clinically as she remains asymptomatic and has a h/o severe C Diff reaction to antibiotics. Low level troponin elevation assessed by cardiology See ECHO report Medications reviewed with patient and her Follow INR closely Close cardiologic and oncology follow up given h/o Pancreatic cancer recurrence and possible underlying MDS Condition: Stable - Instructions Diet, Activity, Other Instructions: Low Na as tolerated Activity as tolerated Cardiologic and oncology follow up Disposition: HOME - Home Medications Comprehensive Discharge Medication List: Ambulatory Orders Atorvastatin Ca [Lipitor] 10 mg PO HS 11/10/17 Cholecalciferol (Vitamin D3) [Vitamin D3] 2,000 unit PO DAILY 11/10/17 Enalapril Maleate 2.5 mg PO DAILY 11/10/17 Famotidine [Pepcid] 20 mg PO PRN PRN 11/10/17 Lipase/Protease/Amylase [Creon Dr 24,000 Units Capsule] 1 each PO DAILY Metoprolol Succinate [Toprol Xl] 100 mg PO DAILY 11/10/17 Torsemide 50 mg PO DAILY 11/10/17 Warfarin Na [Coumadin -] 1 mg PO DAILY 11/10/17 traMADol HCL [Ultram -] 50 mg PO DAILY 11/10/17 Acetaminophen [Tylenol .Regular Strength -] 650 mg PO Q4H PRN tablet 11/14/17 Aspirin Coated [Ecotrin -] 81 mg PO DAILY tablet.ec 11/14/17 Diphenoxylate 2.5/Atropine.025 [Lomotil -] 1 combo PO Q4H PRN tablet MDD 4 10/27 Multivitamins [Multivit ([facility] Formulary)] 1 tab PO DAILY tab 11/14/17
[2017-11-14] MEDS: LACTOBACILLUS ACIDOPHILUS 1 TABLET PO SCH (09:53)
[2017-11-14] MEDS: traMADol HCL 50 MG TABLET PO SCH (09:53)
[2017-11-14] MEDS: ASPIRIN COATED 81 MG TABLET.EC PO SCH (09:54)
[2017-11-14] MEDS: MULTIVITAMINS (DAILY MVI) TABLET (FP) PO SCH (09:54)
[2017-11-14] MEDS: CHOLECALCIFEROL (VITAMIN D3) 1,000 UNIT TABLET (FP) PO SCH (09:54)
[2017-11-14] MEDS: RANITIDINE HCL 150 MG TABLET (FP) PO SCH (09:54)
== END 2017-11-14 10:14 | disposition home or self-care (01) | DRG 683 ==
LOC: JER 14:41 → JERBED 18:17 → J4W 11-11 04:51
PROVIDERS: ADMIT Internal Medicine; ATTEND Internal Medicine
DX: N17.9 Acute kidney failure, unspecified (principal); C25.9 Malignant neoplasm of pancreas, unspecified; I42.9 Cardiomyopathy, unspecified; D61.818 Other pancytopenia; N39.0 Urinary tract infection, site not specified; E87.2 Acidosis; I50.22 Chronic systolic (congestive) heart failure; I24.8 Other forms of acute ischemic heart disease; D69.6 Thrombocytopenia, unspecified; E86.0 Dehydration; I25.10 Atherosclerotic heart disease of native coronary artery without angina pectoris; Z95.1 Presence of aortocoronary bypass graft; K21.9 Gastro-esophageal reflux disease without esophagitis; I48.0 Paroxysmal atrial fibrillation; D72.819 Decreased white blood cell count, unspecified; J06.9 Acute upper respiratory infection, unspecified; D64.9 Anemia, unspecified; I11.0 Hypertensive heart disease with heart failure; D46.9 Myelodysplastic syndrome, unspecified; E78.5 Hyperlipidemia, unspecified
CPT/HCPCS: 36415; 71045-TC-FY; 80048; 80053; 81003; 81015; 82550; 82803; 83605; 83735; 83880; 84443; 84484; 85025; 85610; 85730; 87040; 87070; 87086; 87186; 87205; 87324; 87449; 87804; 93005; 93010; 93306-TC; 94010; 94640; 97116-GP; 97161-GP; 99282-25; J7030